=== PATIENT | female | born 1950 | race Caucasian/White ===

== ENCOUNTER → 2024-05-12 | Outpatient (CLI) | payer MEDICARE ==
[2024-05-12 15:24] LABS: ALT 17 U/L (8-44); AST 15 U/L (13-35); Chol/HDL Ratio 6.36 Ratio; LDL Cholesterol,Calculated 223.4 mg/dL (0.0-131.0)
== END | disposition home or self-care (01) ==
LOC: LABWHC1 12:16
PROVIDERS: ATTEND Internal Medicine Cardiovascular Disease
DX: E78.2 Mixed hyperlipidemia (principal)
CPT/HCPCS: 36415; 80061; 84450; 84460

== ENCOUNTER → 2024-05-31 | Outpatient (CLI) | payer MEDICARE ==
[2024-05-31 13:49] LABS: African American GFR (CKD) 6 (>60 ml/min/1.73 sqM); Blood Urea Nitrogen 39 mg/dL (7-17); Non-African American GFR(CKD) 5 (>60 ml/min/1.73 sqM)
--- NOTE | 2024-05-31 13:53 | CT ---
EXAMINATION TYPE: CT angio head CT DLP: 1504 mGycm, Automated exposure control for dose reduction was used. DATE OF EXAM: 05/31/2024 1:45 PM COMPARISON: None. 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 Axial images are supplemented with 3D reconstructions wh ich were post-processed at an independent workstation. NASCET criteria used. FINDINGS: No evidence of acute intracranial hemorrhage, mass effect, or midline shift. The ventricles, sulci, a nd cisterns are unremarkable. The visualized portions of the internal carotid arteries, middle cerebral arteries, anterior cerebral arteries, and posterior cerebral arteries are patent. 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 No visualized calcifie d plaque identified. The basilar and vertebral arteries are patent. Right vertebral artery is dominant. Diminutive left ve rtebral artery. No visualized calcified plaque identified. Bilateral aphakia. Left scleral calcifications. IMPRESSION: 1. No evidence of high-grade stenosis or intracranial aneurysm. 2. Patent vertebral arteries with diminutive left vertebral artery and dominant right vertebral lionel ry. [facility], , 05/31/2024 1:51 PM
== END | disposition home or self-care (01) ==
LOC: RADCTMAIN 13:01
PROVIDERS: ATTEND Psychiatry & Neurology Neurology
DX: I65.09 Occlusion and stenosis of unspecified vertebral artery
CPT/HCPCS: 36415; 70496; 82565; 84520

== ENCOUNTER → 2024-07-07 | Outpatient (CLI) | payer MEDICARE ==
[2024-07-08 02:10] LABS: HCT 33.5 % (37.2-46.3); HGB 10.3 g/dL (12.0-15.0); MCH 32.2 pg (27.0-32.0); MCHC 30.7 g/dL (32.0-37.0); MCV 104.7 FL (80.0-97.0); Mean Platelet Volume 9.2 FL (9.5-12.2); NRBC Per 100 WBC 0 X 10*3/uL (0.00-0.01); Platelet Count 431 X 10*3/uL (140-440); RDW 13.3 % (11.5-14.5); WBC 6.75 X 10*3/uL (4.50-10.00)
[2024-07-08 02:56] LABS: Blood Urea Nitrogen 38.2 mg/dL (9.0-27.0); Carbon Dioxide 27.1 mmol/L (21.6-31.8); Chloride 96 mmol/L (96-109); Potassium 5.3 mmol/L (3.5-5.5); Sodium 136 mmol/L (135-145)
== END | disposition home or self-care (01) ==
LOC: LABPAT 16:23
PROVIDERS: ATTEND Internal Medicine Cardiovascular Disease
DX: Z01.812 Encounter for preprocedural laboratory examination (principal); R07.2 Precordial pain
CPT/HCPCS: 80051; 82565; 84520; 85027

== ENCOUNTER 2024-07-09 06:25 | Day surgery (SDC) | payer MEDICARE ==
[2024-07-07 16:05] VITALS: BMI 33.2
[2024-07-09] MEDS ORDERED: NITROGLYCERIN SL TABS 0.4 MG TAB SUBLINGUAL PRN (06:46)
[2024-07-09] MEDS ORDERED: ALPRAZolam 0.25 MG TAB PO PRN (06:46)
[2024-07-09] MEDS ORDERED: ALPRAZolam 0.5 MG TAB PO PRN (06:46)
[2024-07-09] MEDS ORDERED: ATORVASTATIN 80 MG TAB PO STA (06:46)
[2024-07-09] MEDS ORDERED: ASPIRIN 325 MG TAB PO STA (06:46)
[2024-07-09] MEDS: IV FLUID CONTINUATION 1,000 ML IV ONE (06:50)
[2024-07-09] MEDS ORDERED: HEPARIN SODIUM,PORCINE (1 ML) 2,500 UNIT in SODIUM CHLORIDE 0.9% 250 ML IRRIGATION PRN (07:00)
[2024-07-09] MEDS ORDERED: HEPARIN SODIUM,PORCINE 10,000 UNIT in SODIUM CHLORIDE 0.9% 1,000 ML IRRIGATION PRN (07:00)
[2024-07-09 07:02] VITALS: TEMP 98
[2024-07-09] MEDS: SODIUM CHLORIDE 0.9% 1,000 ML in EMPTY BAG 1 BAG IV SCH (07:02)
[2024-07-09 07:07] LABS: Glucose,Whole Blood 81 mg/dL (70-110)
[2024-07-09] MEDS: fentaNYL (PF) 50 MCG/ML 2 ML AMP IVP ONE (07:38)
[2024-07-09] MEDS: MIDAZOLAM 2 MG/2 ML VIAL IVP ONE (07:38)
[2024-07-09] MEDS: VERAPAMIL SYRINGE (5 MG/10 ML) INTRAARTER ONE (07:42)
[2024-07-09] MEDS: LIDOCAINE 1% INJ 10MG/ML (20 ML MDV) SQ ONE (07:42)
[2024-07-09] MEDS: HEPARIN SODIUM 1,000 UN/ML (10ML VL) IVP ONE (07:43)
[2024-07-09] MEDS: IOPAMIDOL-370 100ML BTL INJ ONE (07:50)
--- NOTE | 2024-07-09 08:17 | CC ---
CARDIAC CATHETERIZATION REPORT INDICATION: Unstable angina. PROCEDURE NOTE: After obtaining informed consent, left heart catheterization and coronary angiogram were performed via the right radial artery using standard Shante catheters. The patient tolerated the procedure well without any obvious immediate complications, received moderate conscious sedation. Total sedation time was 11 minutes. Right radial artery access was obtained using Seldinger technique, 6-Hebrew sheath was placed. Catheters and wires were floated in the ascending aorta under fluoroscopic guidance. Verapamil and heparin were given per protocol. A TR band was used for hemostasis. FINDINGS: 1. HEMODYNAMICS: Left ventricular end-diastolic pressure is 18 mm. There is no significant gradient across the aortic valve. 2. LEFT VENTRICULOGRAM: Left ventriculogram is not performed. 3. ANGIOGRAPHIC DATA: a.Right coronary artery: Right coronary artery is a large codominant vessel that did not reveal significant focal obstructive disease. b.Left main coronary artery is a normal-sized vessel and is free of stenosis. Divides into left anterior descending coronary artery and circumflex coronary artery. c.LAD gives off large caliber diagonal branches. The second diagonal branch has a 40% stenosis. The rest of the LAD and the circ are free of significant disease. CONCLUSIONS: A 30% to 40% stenosis involving second diagonal branch. PLAN: I explained angiographic data with the patient and told her that her chest discomfort is probably noncardiac in origin and the stenosis noted in the diag does not explain her chest pain. She could have small vessel disease, hence we will continue to work on risk factor modification, treat her with aspirin, nitrates, and optimal control of her risk factors. MMODL / IJN: [id number] /
[2024-07-09 08:38] VITALS: RESP 16
[2024-07-09] MEDS ORDERED: RX INFO: IV CONTRAST WAS GIVEN 1 EACH MISC MISCELLANE PRN (08:45)
[2024-07-09] MEDS ORDERED: SODIUM CHLORIDE 0.9% 1,000 ML IV SCH (08:45)
[2024-07-09 12:01] VITALS: BP 141/72; PULSE 82
== END 2024-07-09 12:04 | disposition home or self-care (01) ==
LOC: CATHCVL 06:25
PROVIDERS: ATTEND Internal Medicine Cardiovascular Disease
DX: I20.0 Unstable angina (principal)
CPT/HCPCS: 93458; J2250; J2003; J3010; J1644; Q9967

== ENCOUNTER 2024-11-03 12:12 | Inpatient (IN) | payer MEDICARE ==
--- NOTE | 2024-11-03 13:00 | ED ---
General Adult HPI - General Chief complaint: Recheck/Abnormal Lab/Rx Stated complaint: SOB Time Seen by Provider: 11/03/24 12:15 Source: patient Mode of arrival: ambulatory Limitations: no limitations - History of Present Illness Initial comments: Dictation was produced using [employer] dictation software. please excuse any grammatical, word or spelling errors. Chief Complaint: 74-year-old female presents to the emerged department for malfunctioning dialysis access History of Present Illness: Patient is 74-year-old female she has history of ESRD. Patient has dialysis access to the left forearm. Patient went to dialysis yesterday and was not working. She was told to go home. States that she called vascular surgery's office who then told her they are unable to help her at this time. She then came to the emergency department. Patient has no o ther complaints. States that she received a minimal dialysis on Friday. Patient denies any chest pain to me. The ROS documented in this emergency department record has been reviewed and confirmed by me. Those systems with pertinent positive or negative responses have been documented in the HPI. All other systems are other negative and/or noncontributory. - Related Data Home Medications Medication Instructions Recorded Confirmed Atorvastatin [Lipitor] 40 mg PO HS 07/07/24 07/09/24 Folic Acid/Vit B Complex and C 1 tab PO HS 07/07/24 07/09/24 [Tea-Jn Tablet] amLODIPine BESYLATE 10 mg PO HS 07/07/24 07/09/24 hydroCHLOROthiazide [Hydrodiuril] 50 mg PO HS 07/07/24 07/09/24 Aspirin 81 mg PO DAILY 07/09/24 07/09/24 Nitroglycerin 0.4 mg SL DIRECTED 07/09/24 07/09/24 Allergies Allergy/AdvReac Type Severity Reaction Status Date / Time adhesive tape Allergy Rash/Hives Verified 11/03/24 12:19 Review of Systems ROS Statement: Those systems with pertinent positive or pertinent negative responses have been documented in the HPI. ROS Other: All systems not noted in ROS Statement are negative. Past Medical History Past Medical History: Chest Pain / Angina, Diabetes Mellitus, Hyperlipidemia, Hypertension, Osteoarthritis (OA), Renal Disease Additional Past Medical History / Comment(s): Diet Controlled Diabetes. Dialysis TUTHSA. Hx kidney stones. History of Any Multi-Drug Resistant Organisms: None Reported Past Surgical History: Joint Replacement Additional Past Surgical History / Comment(s): Procedure for kidney stone X2, bilateral knee replacement. Past Anesthesia/Blood Transfusion Reactions: No Reported Reaction, Motion Sickness Past Psychological History: No Psychological Hx Reported Smoking Status: Never smoker Past Alcohol Use History: None Reported Past Drug Use History: None Reported - Past Family History Brother(s) Family Medical History: Cancer General Exam - General Exam Comments Initial Comments: PHYSICAL EXAM: General Impression: Alert and oriented x3, not in acute distress HEENT: Normocephalic atraumatic, extra-ocular movements intact, pupils equal and reactive to light bilaterally, mucous membranes moist. Cardiovascular: Heart regular rate and rhythm Chest: Able to complete full sentences, no retractions, no tachypnea Abdomen: abdomen soft, non-tender, non-distended, no organomegaly Musculoskeletal: Pulses present and equal in all extremities, no peripheral edema Forearm breath with no palpable thrill or audible bruit Motor: no focal deficits noted Neurological: CN II-XII grossly intact, no focal motor or sensory deficits noted Skin: Intact with no visualized rashes Psych: Normal affect and mood Limitations: no limitations Course Vital Signs 11/03/24 11/03/24 12:15 12:46 Temperature 97.3 F L Pulse Rate 72 Respiratory 18 18 Rate Blood Pressure 147/72 O2 Sat by Pulse 98 Oximetry EKG Findings - EKG Comments: EKG Findings:: My EKG interpretation: Ventricular rate 66, sinus rhythm,. Well 221, QRS 84, QTc 3 5. No signs of hyperkalemia. No VA prolongation, no QTC prolongation, no ST or T-wave changes noted. compared to [default value] showing no changes. Overall, this EKG is unremarkable Medical Decision Making - Medical Decision Making Was pt. sent in by a medical professional or institution (, PA, ADVERTISING REPRESENTATIVE, urgent care, hospital, or fdc...) When possible be specific @ -No Did you speak to anyone other than the patient for history (EMS, parent, family, police, friend...)? What history was obtained from this source @ -No Did you review nursing and triage notes (agree or disagree)? Why? @ -I reviewed and agree with nursing and triage notes Were old charts reviewed (outside hosp., previous admission, EMS record, old EKG, old radiological studies, urgent care reports/EKG's, fdc records)? Report findings @ -No old charts were reviewed Differential Diagnosis (chest pain, altered mental status, abdominal pain women, abdominal pain men, vaginal bleeding, musculoskeletal, weakness, fever, dyspnea, syncope, headache, dizziness, GI bleed, back pain, seizure, CVA, palpatations, mental health)? @ -Not applicable EKG interpreted by me (3pts min.). @ -None done X-rays interpreted by me (1pt min.). @ -Chest x-ray shows mild pulmonary edema CT interpreted by me (1pt min.). @ -None done U/S interpreted by me (1pt. min.). @ -None done What testing was considered but not performed or refused? (CT, X-rays, U/S, labs)? Why? @ -None What meds were considered but not given or refused? Why? @ -None Was smoking cessation discussed for >3mins.? @ -No Were there social determinants of health that impacted care today? How? (H omelessness, low income, unemployed, alcoholism, drug addiction, transportation, low edu. Level, literacy, decrease access to med. care, custodial, rehab)? @ -No Was there de-escalation of care discussed even if they declined (Discuss DNR or withdrawal of care, Hospice)? DNR status @ -No What co-morbidities impacted this encounter? (DM, HTN, Smoking, COPD, CAD, Cancer, CVA, ARF, Chemo, Hep., AIDS, mental health diagnosis, sleep apnea, morbid obesity)? @ -ESRD Was patient admitted / discharged? Hospital course, mention meds given and route, prescriptions, significant lab abnormalities, going to OR and other pertinent info. @ -74-year-old female with malfunctioning hemodialysis access site. She received some dialysis Friday most recently. Patient denies any symptoms of missed HD. Vital signs stable. Potassium is within acceptable limits. Patient be admitted with consultation to vascular surgery. Case discussed with hospitalist for admission. Nephrology also consulted. Did you discuss the management of the patient with other professionals (professionals i.e. , PA, ADVERTISING REPRESENTATIVE, lab, RT, psych nurse, social media intern, carrot tier, teacher, civil preparedness officer, caser up)? Give summary @ -No Was critical care preformed (if so, how long)? @ -No Undiagnosed new problem with uncertain prognosis? @ -No Drug Therapy requiring intensive monitoring for toxicity (Heparin, Nitro, Insulin, Cardizem)? @ -No Were any procedures done? @ -No Diagnosis/symptom? Acute, or Chronic, or Acute on Chronic? Uncomplicated (without systemic symptoms) or Complicated (systemic symptoms)? @ -Malfunctioning HD access Side effects of treatment? @ -No Exacerbation, Progression, or Severe Exacerbation? @ -No Poses a threat to life or bodily function? How? (Chest pain, USA, IA, pneumonia, PE, COPD, DKA, ARF, appy, cholecystitis, CVA, Diverticulitis, Homicidal, Suicidal, threat to staff... and all critical care pts) @ -yes - Lab Data Result diagrams: 11/03/24 13:04 11/03/24 13:04 Lab Results 11/03/24 11/03/24 11/03/24 Range/Units 13:04 13:04 13:04 WBC 8.1 (3.8-10.6) k/uL RBC 3.70 L (3.80-5.40) m/uL Hgb 11.4 (11.4-16.0) gm/dL Hct 36.8 (34.0-46.0) % MCV 99.5 (80.0-100.0) fL MCH 30.9 (25.0-35.0) pg MCHC 31.0 (31.0-37.0) g/dL RDW 13.4 (11.5-15.5) % Plt Count 368 (150-450) k/uL MPV 6.9 Neutrophils % 73 % Lymphocytes % 15 % Monocytes % 5 % Eosinophils % 4 % Basophils % 0 % Neutrophils # 5.9 (1.3-7.7) k/uL Lymphocytes # 1.2 (1.0-4.8) k/uL Monocytes # 0.4 (0-1.0) k/uL Eosinophils # 0.3 (0-0.7) k/uL Basophils # 0.0 (0-0.2) k/uL Hypochromasia Slight PT 9.9 L (10.0-12.5) sec INR 0.9 (<1.2) APTT 22.4 (22.0-30.0) sec Sodium 138 (137-145) mmol/L Potassium 4.7 (3.5-5.1) mmol/L Chloride 97 L (98-107) mmol/L Carbon Dioxide 31 H (22-30) mmol/L Anion Gap 10 mmol/L BUN 50 H (7-17) mg/dL Creatinine 7.96 H* (0.52-1.04) mg/dL Est GFR (CKD-EPI)AfAm 5 (>60 ml/min/1.73 sqM) Est GFR (CKD-EPI)NonAf 5 (>60 ml/min/1.73 sqM) Glucose 138 H (74-99) mg/dL Calcium 12.4 H (8.4-10.2) mg/dL Magnesium 4.2 H (1.6-2.3) mg/dL Total Bilirubin 0.6 (0.2-1.3) mg/dL AST 20 (14-36) U/L ALT 18 (4-34) U/L Alkaline Phosphatase 98 (38-126) U/L Troponin I (0.000-0.034) ng/mL Total Protein 7.0 (6.3-8.2) g/dL Albumin 4.3 (3.5-5.0) g/dL 11/03/24 Range/Units 13:04 WBC (3.8-10.6) k/uL RBC (3.80-5.40) m/uL Hgb (11.4-16.0) gm/dL Hct (34.0-46.0) % MCV (80.0-100.0) fL MCH (25.0-35.0) pg MCHC (31.0-37.0) g/dL RDW (11.5-15.5) % Plt Count (150-450) k/uL MPV Neutrophils % % Lymphocytes % % Monocytes % % Eosinophils % % Basophils % % Neutrophils # (1.3-7.7) k/uL Lymphocytes # (1.0-4.8) k/uL Monocytes # (0-1.0) k/uL Eosinophils # (0-0.7) k/uL Basophils # (0-0.2) k/uL Hypochromasia PT (10.0-12.5) sec INR (<1.2) APTT (22.0-30.0) sec Sodium (137-145) mmol/L Potassium (3.5-5.1) mmol/L Chloride (98-107) mmol/L Carbon Dioxide (22-30) mmol/L Anion Gap mmol/L BUN (7-17) mg/dL Creatinine (0.52-1.04) mg/dL Est GFR (CKD-EPI)AfAm (>60 ml/min/1.73 sqM) Est GFR (CKD-EPI)NonAf (>60 ml/min/1.73 sqM) Glucose (74-99) mg/dL Calcium (8.4-10.2) mg/dL Magnesium (1.6-2.3) mg/dL Total Bilirubin (0.2-1.3) mg/dL AST (14-36) U/L ALT (4-34) U/L Alkaline Phosphatase (38-126) U/L Troponin I <0.012 (0.000-0.034) ng/mL Total Protein (6.3-8.2) g/dL Albumin (3.5-5.0) g/dL Disposition Clinical Impression: Hemodialysis graft malfunction Disposition: ADMITTED IP TO THIS HOSP Condition: Fair Referrals: Stephanie Gay MD [Primary Care Provider] - 1-2 days Decision Time: 14:31
[2024-11-03 13:17] LABS: Basophils % (A) 0 %; Eosinophils # (A) 0.3 k/uL (0-0.7); Eosinophils % (A) 4 %; HCT 36.8 % (34.0-46.0); HGB 11.4 gm/dL (11.4-16.0); Hypochromasia Slight; Lymphocytes # (A) 1.2 k/uL (1.0-4.8); Lymphocytes % (A) 15 %; MCH 30.9 pg (25.0-35.0); MCV 99.5 fL (80.0-100.0); Mean Platelet Volume 6.9; Monocytes # (A) 0.4 k/uL (0-1.0); Monocytes % (A) 5 %; Neutrophils # (A) 5.9 k/uL (1.3-7.7); Neutrophils % (A) 73 %; Platelet Count 368 k/uL (150-450); RDW 13.4 % (11.5-15.5); WBC 8.1 k/uL (3.8-10.6)
[2024-11-03 13:27] LABS: ALT 18 U/L (4-34); AST 20 U/L (14-36); African American GFR (CKD) 5 (>60 ml/min/1.73 sqM); Albumin 4.3 g/dL (3.5-5.0); Alkaline Phosphatase 98 U/L (38-126); Anion Gap 10 mmol/L; Blood Urea Nitrogen 50 mg/dL (7-17); Calcium 12.4 mg/dL (8.4-10.2); Carbon Dioxide 31 mmol/L (22-30); Chloride 97 mmol/L (98-107); Glucose 138 mg/dL (74-99); Magnesium 4.2 mg/dL (1.6-2.3); Non-African American GFR(CKD) 5 (>60 ml/min/1.73 sqM); Potassium 4.7 mmol/L (3.5-5.1); Sodium 138 mmol/L (137-145); Total Bilirubin 0.6 mg/dL (0.2-1.3)
--- NOTE | 2024-11-03 13:30 | XR ---
EXAMINATION TYPE: XR chest 2V DATE OF EXAM: 11/03/2024 1:13 PM COMPARISON: None CLINICAL INDICATION: Female, 74 years old with history of missed HD, chest pain?; [facility] TECHNIQUE: XR chest 2V Frontal and lateral views of the chest. FINDINGS: Lungs/Pleura: There is no evidence of pleural effusion, focal consolidation, or pneumothorax. Pulmonary vascularity: Pulmonary vascular congestion. Heart/mediastinum: Cardiomediastinal silhouette is unremarkable. Musculoskeletal: No acute osseous pathology. IMPRESSION: Mild pulmonary edema [facility], , 11/03/2024 1:28 PM
[2024-11-03 13:35] LABS: INR 0.9 (<1.2); Partial Thromboplastin Time 22.4 sec (22.0-30.0); Prothrombin Time 9.9 sec (10.0-12.5)
[2024-11-03] MEDS ORDERED: NALOXONE 0.4 MG/ML 1 ML VIAL IV PRN (14:23)
--- NOTE | 2024-11-03 15:24 | P.GSCN ---
History of Present Illness Consult date: 11/03/24 Reason for Consult: Malfunctioning dialysis graft Requesting physician: Desean Orta History of present illness: This a pleasant 74-year-old female who came into the emergency department for concerns of malfunctioning left upper extremity AV graft. Patient has a history of end-stage renal disease started dialysis about a year and a half ago. She has a left upper extremity loop graft placed by Dr. Lockwood at [facility] about a year ago. Patient states she gets dialysis Friday and Saturdays. Friday she went to dialysis and during her treatment she started having chest pain and they called EMS. She reports they did not remove the needles from her arm and she was taken to [facility]. She does not recall how long the needles were left in her arm. She states she had about an hour and a half of dialysis treatment. She was seen by cardiology and had been cleared by cardiology for discharge and patient states that they could not find a reason for her chest pain. Yesterday she went for dialysis however they were unable to access her graft, she was told to by vascular surgery office to go to [facility] however patient came here today. She denies any pain in forearm. She currently denies any shortness of breath, chest pain, abdominal pain nausea or vomiting. No fevers or chills. Review of Systems A 14 point review systems was completed all pertinent positives and negatives as stated in the HPI. Past Medical History Past Medical History: Chest Pain / Angina, Diabetes Mellitus, Hyperlipidemia, Hypertension, Osteoarthritis (OA), Renal Disease Additional Past Medical History / Comment(s): Diet Controlled Diabetes. Dialysis TUTHSA. Hx kidney stones. History of Any Multi-Drug Resistant Organisms: None Reported Past Surgical History: Joint Replacement Additional Past Surgical History / Comment(s): Procedure for kidney stone X2, bilateral knee replacement. Past Anesthesia/Blood Transfusion Reactions: No Reported Reaction, Motion Sickness Past Psychological History: No Psychological Hx Reported Smoking Status: Never smoker Past Alcohol Use History: None Reported Past Drug Use History: None Reported - Past Family History Brother(s) Family Medical History: Cancer Medications and Allergies Home Medications Medication Instructions Recorded Confirmed Type Atorvastatin [Lipitor] 40 mg PO HS 07/07/24 11/03/24 History Folic Acid/Vit B Complex and C 0.8 mg PO HS 07/07/24 11/03/24 History [Tea-Jn Tablet] Nitroglycerin 0.4 mg SL Q5M PRN 07/09/24 11/03/24 History Isosorbide Mononitrate ER [Imdur] 30 mg PO DAILY 11/03/24 11/03/24 History Metoprolol Succinate (ER) [Toprol 25 mg PO DAILY 11/03/24 11/03/24 History Xl] carvediloL [Coreg] 6.25 mg PO BID 11/03/24 11/03/24 History Allergies Allergy/AdvReac Type Severity Reaction Status Date / Time adhesive tape Allergy Rash/Hives Verified 11/03/24 14:52 Surgical - Exam Vital Signs Temp Pulse Resp BP Pulse Ox 97.3 F L 72 18 147/72 98 11/03/24 12:15 11/03/24 12:15 11/03/24 12:15 11/03/24 12:15 11/03/24 12:15 General appearance: The patient is alert, oriented, appears in no acute distress. HET: Head is normocephalic and atraumatic. Pupils are equal and reactive. Neck: Supple. Heart: Regular. Lungs: Equal expansion, normal respiratory effort. Abdomen: Soft, nontender, nondistended. Extremities: Normal skin color and turgor. Left forearm loop AV graft without palpable thrill or audible bruit. Neurological: No focal deficits. Alert and oriented. Results - Labs 11/03/24 13:04 11/03/24 13:04 Abnormal Lab Results - Last 24 Hours (Table) 11/03/24 11/03/24 11/03/24 Range/Units 13:04 13:04 13:04 RBC 3.70 L (3.80-5.40) m/uL PT 9.9 L (10.0-12.5) sec Chloride 97 L (98-107) mmol/L Carbon Dioxide 31 H (22-30) mmol/L BUN 50 H (7-17) mg/dL Creatinine 7.96 H* (0.52-1.04) mg/dL Glucose 138 H (74-99) mg/dL Calcium 12.4 H (8.4-10.2) mg/dL Magnesium 4.2 H (1.6-2.3) mg/dL Diabetes panel 11/03/24 Range/Units 13:04 Sodium 138 (137-145) mmol/L Potassium 4.7 (3.5-5.1) mmol/L Chloride 97 L (98-107) mmol/L Carbon Dioxide 31 H (22-30) mmol/L BUN 50 H (7-17) mg/dL Creatinine 7.96 H* (0.52-1.04) mg/dL Glucose 138 H (74-99) mg/dL Calcium 12.4 H (8.4-10.2) mg/dL AST 20 (14-36) U/L ALT 18 (4-34) U/L Alkaline Phosphatase 98 (38-126) U/L Total Protein 7.0 (6.3-8.2) g/dL Albumin 4.3 (3.5-5.0) g/dL Calcium panel 11/03/24 Range/Units 13:04 Calcium 12.4 H (8.4-10.2) mg/dL Albumin 4.3 (3.5-5.0) g/dL Pituitary panel 11/03/24 Range/Units 13:04 Sodium 138 (137-145) mmol/L Potassium 4.7 (3.5-5.1) mmol/L Chloride 97 L (98-107) mmol/L Carbon Dioxide 31 H (22-30) mmol/L BUN 50 H (7-17) mg/dL Creatinine 7.96 H* (0.52-1.04) mg/dL Glucose 138 H (74-99) mg/dL Calcium 12.4 H (8.4-10.2) mg/dL Adrenal panel 11/03/24 Range/Units 13:04 Sodium 138 (137-145) mmol/L Potassium 4.7 (3.5-5.1) mmol/L Chloride 97 L (98-107) mmol/L Carbon Dioxide 31 H (22-30) mmol/L BUN 50 H (7-17) mg/dL Creatinine 7.96 H* (0.52-1.04) mg/dL Glucose 138 H (74-99) mg/dL Calcium 12.4 H (8.4-10.2) mg/dL Total Bilirubin 0.6 (0.2-1.3) mg/dL AST 20 (14-36) U/L ALT 18 (4-34) U/L Alkaline Phosphatase 98 (38-126) U/L Total Protein 7.0 (6.3-8.2) g/dL Albumin 4.3 (3.5-5.0) g/dL Assessment and Plan Assessment: 1. Thrombosed left upper extremity forearm loop AV graft 2. End-stage renal disease on hemodialysis Plan: 1. N.p.o. after midnight 2. Will plan for fistulogram tomorrow with possible intervention versus possible tunnel catheter placement 3. Hemodialysis per recommendations from nephrology 4. Rest of medical management per primary medical team Thank you for this consultation, we will continue to follow. The impression and plan of care has been dictated as directed. Dr. Nieves Gautam performed a history and examination of this patient, discussed the same with the dictator. I agree with the dictator's note ,documented as a scribe. Any additional findings or plans will be noted.
[2024-11-03] MEDS ORDERED: DEXTROSE 50% SYRINGE 50 ML IVP PRN ×2 (16:17)
[2024-11-03 17:17] LABS: Glucose,Whole Blood 101 mg/dL (70-110)
--- NOTE | 2024-11-03 17:47 | P.HPIM ---
History of Present Illness H&P Date: 11/03/24 Patient is a 74-year-old female with CAD, ESRD (dialysis Friday), hyperlipidemia, hypertension, osteoarthritis, diabetes (diet- controlled) is here for the evaluation of malfunctioning dialysis port of the left arm. Patient also reported that she had chest pain during her dialysis session on Friday and staff called EMS. She was taken to [facility] and they placed needles on her arm that were not removed. She was evaluated by cardiology and was cleared for discharge as they could not find a reason for her chest pain. Patient reported that she went for dialysis yesterday on 11/02 however her dialysis port did not work. She has no symptoms or complaints on the affected extremity. She was advised by the vascular surgery office to return to [facility] where her graft was done however patient came to our facility today. She denied pain, swelling, focal weakness, changes in sensation, bleeding of the affected extremity. She denied shortness of breath, chest pain, palpitations, changes in vision, facial asymmetry, lightheadedness, dizziness, balance changes, recent illness. On admission: Vitals: 9.73 Fahrenheit, pulse rate 72, respiratory rate 18, blood pressure 147/72, oxygen saturation 98 % on room air Labs: WBC 8.1, hemoglobin 11.4, platelet count 360,000, PTT 9.9, INR 0.9, PTT 22.4. Chloride 97, bicarb 31, BUN 50, creatinine 7.96, glucose 138, calcium 12.4, magnesium 4.2, AST 20, ALT 18. Troponins negative. Imaging: EKG independently interpreted show sinus rhythm with a rate of 66, first-degree AV block with MI interval 221 MS, normal axis, no ST-T changes, good R wave progression, QTc 385 MS. Chest x-ray showed. ED documentation reviewed. Consulted vascular surgery and nephrology. Review of systems: Pertinent positives and negatives as discussed in HPI, a complete review of systems was performed and all other systems are negative. Social history: Tobacco: Denies tobacco use Alcohol: Denies alcohol use Recreational drugs: No history with illicit or recreational drugs Travel: No recent travel Physical examination: Vital signs reviewed General: non toxic, no distress, appears at stated age, Derm: no unusual rashes/lesions, warm Head: atraumatic, normocephalic, symmetric Eyes: EOMI, anicteric sclera, pupils equal round reactive to light ENT: Nose and ears atraumatic Neck: No cervical lymphadenopathy, trachea midline, supple Mouth: no lip lesion, mucus membranes moist Cardiovascular: S1S2 reg, no murmur Lungs: CTA bilateral, no rhonchi, no rales, no accessory muscle use Abdominal: soft, nondistended, nontender to palpation, no guarding Ext: muscle strength 5 out of 5 in all 4 extremities grossly, no gross muscle atrophy, no contractures, positive dorsalis pedis pulse bilateral, no edema, AV fistula noted on left forearm with 1 vessel firm but mobile without any bleeding, bruits, bruising or swelling noted Neuro: CN II-XI grossly intact, no gross focal neuro deficits Psych: Alert and oriented x 3, appropriate affect and mood Assessment/Plan: 74-year-old female has a history of ESRD here for thrombosed left upper extremity forearm looped AV graft #. ESRD with thrombosed AV graft -Nephrology consulted for dialysis -Vascular surgery consulted -N.p.o. at midnight #. Hypercalcemia, likely due to above #. Hypermagnesemia likely due to above -Ordered VitD, PTH and phosphorus -Monitor Ca and Mag #. First-degree AV block -Seen on EKG -Patient stable and asymptomatic -Monitor for now #. Type II diabetes with hyperglycemia -Glucose 138 -Check A1c -Insulin sliding scale ACHS -Glucose Accu-Cheks ACHS. Monitor for hypoglycemia Chronic Conditions: #. CAD #. Hyperlipidemia #. Hypertension #. Osteoarthritis #. Diabetes -Resumed home atorvastatin, carvedilol and isosorbide mononitrate F: Oral intake E: Monitor electrolytes particularly calcium and magnesium N: Renal diet. N.p.o. at midnight A: Can self ambulate DVT ppx: Heparin subcu Dispo: The patient is admitted as observation with an anticipated less than 2 midnight stay for evaluation of ESRD graft thrombosis CODE STATUS: Full Discussed with: Patient Anticipated discharge place: Home Brandi Blanchard MD PGY-1 IM Dictation was produced using [employer] dictation software. please excuse any grammatical, word or spelling errors. I have seen and evaluated the patient today. Discussed with the resident and agree with the residents finding and plan as documented in the resident's note. Changes highlighted in blue font. Past Medical History Past Medical History: Chest Pain / Angina, Diabetes Mellitus, Hyperlipidemia, Hypertension, Osteoarthritis (OA), Renal Disease Additional Past Medical History / Comment(s): Diet Controlled Diabetes. Dialysis TUTHSA. Hx kidney stones. History of Any Multi-Drug Resistant Organisms: None Reported Past Surgical History: Joint Replacement Additional Past Surgical History / Comment(s): Procedure for kidney stone X2, bilateral knee replacement. Past Anesthesia/Blood Transfusion Reactions: No Reported Reaction, Motion Sickness Past Psychological History: No Psychological Hx Reported Smoking Status: Never smoker Past Alcohol Use History: None Reported Past Drug Use History: None Reported - Past Family History Brother(s) Family Medical History: Cancer Medications and Allergies Home Medications Medication Instructions Recorded Confirmed Type Atorvastatin [Lipitor] 40 mg PO HS 07/07/24 11/03/24 History Folic Acid/Vit B Complex and C 0.8 mg PO HS 07/07/24 11/03/24 History [Tea-Jn Tablet] Nitroglycerin 0.4 mg SL Q5M PRN 07/09/24 11/03/24 History Isosorbide Mononitrate ER [Imdur] 30 mg PO DAILY 11/03/24 11/03/24 History Metoprolol Succinate (ER) [Toprol 25 mg PO DAILY 11/03/24 11/03/24 History Xl] carvediloL [Coreg] 6.25 mg PO BID 11/03/24 11/03/24 History Allergies Allergy/AdvReac Type Severity Reaction Status Date / Time adhesive tape Allergy Rash/Hives Verified 11/03/24 14:52 Physical Exam Vitals: Vital Signs Temp Pulse Resp BP Pulse Ox 11/03/24 12:46 18 11/03/24 12:15 97.3 F L 72 18 147/72 98 Intake and Output 11/03/24 11/03/24 11/03/24 06:59 14:59 22:59 Other: Weight 79.832 kg Results CBC & Chem 7: 11/03/24 13:04 11/03/24 13:04 Labs: Abnormal Lab Results - Last 24 Hours (Table) 11/03/24 11/03/24 11/03/24 Range/Units 13:04 13:04 13:04 RBC 3.70 L (3.80-5.40) m/uL PT 9.9 L (10.0-12.5) sec Chloride 97 L (98-107) mmol/L Carbon Dioxide 31 H (22-30) mmol/L BUN 50 H (7-17) mg/dL Creatinine 7.96 H* (0.52-1.04) mg/dL Glucose 138 H (74-99) mg/dL Calcium 12.4 H (8.4-10.2) mg/dL Magnesium 4.2 H (1.6-2.3) mg/dL
[2024-11-03] MEDS: INSULIN LISPRO (HumaLOG) 100 UNIT/ML 10 mL VL SQ SCH (18:25)
[2024-11-03] MEDS: HEPARIN SODIUM,PORCINE 5,000 UNIT/ML 1 ML VIAL SQ SCH (18:28)
[2024-11-03] MEDS: carvediloL 6.25 MG TAB PO SCH (18:28)
[2024-11-03 20:40] LABS: Glucose,Whole Blood 181 mg/dL (70-110)
[2024-11-03] MEDS: ATORVASTATIN 40 MG TAB PO SCH (20:41)
[2024-11-04 04:43] LABS: African American GFR (CKD) 5 (>60 ml/min/1.73 sqM); Anion Gap 8 mmol/L; Blood Urea Nitrogen 59 mg/dL (7-17); Calcium 12.3 mg/dL (8.4-10.2); Carbon Dioxide 27 mmol/L (22-30); Chloride 98 mmol/L (98-107); Glucose 93 mg/dL (74-99); Non-African American GFR(CKD) 4 (>60 ml/min/1.73 sqM); Potassium 4.5 mmol/L (3.5-5.1); Sodium 133 mmol/L (137-145)
[2024-11-04 07:13] LABS: Glucose,Whole Blood 102 mg/dL (70-110)
[2024-11-04] MEDS: ISOSORBIDE MONONITRATE ER 30 MG TAB.ER.24H PO SCH (09:08)
[2024-11-04] MEDS: ASPIRIN 81 MG PO SCH (09:09)
--- NOTE | 2024-11-04 11:02 | P.NPCON ---
History of Present Illness - Reason for Consult end stage renal disease - History of Present Illness Reason for consultation: End-stage renal disease History of present illness: Patient is a 74-year-old female seen in renal consultation for end-stage renal disease. She is maintained on hemodialysis on Friday schedule. Last dialysis was on Friday. Patient states when she went to [facility] on Friday her AV graft was not functioning and she came here for further evaluation. Patient states she also went to the hospital last Friday due to not feeling well and was subsequently discharged. Patient dialyzes at [facility] in [place] and follows with compensation coordinator in that area. She makes little urine. She does have history of diabetes. Denies history of coronary artery disease. No fever or chills. No vomiting or diarrhea. No chest pain or shortness of breath. Vital signs are stable. General: No acute distress. HEENT: Head exam is unremarkable. LUNGS: No audible rhonchi or wheezes. HEART: Rate and Rhythm are regular. ABDOMEN: Nontender. EXTREMITITES: No edema. Past Medical History Past Medical History: Chest Pain / Angina, Diabetes Mellitus, Hyperlipidemia, Hypertension, Osteoarthritis (OA), Renal Disease Additional Past Medical History / Comment(s): Diet Controlled Diabetes. Dialysis TUTHSA. Hx kidney stones. History of Any Multi-Drug Resistant Organisms: None Reported Past Surgical History: Joint Replacement Additional Past Surgical History / Comment(s): Procedure for kidney stone X2, bilateral knee replacement. Past Anesthesia/Blood Transfusion Reactions: No Reported Reaction, Motion Sickness Past Psychological History: No Psychological Hx Reported Smoking Status: Never smoker Past Alcohol Use History: None Reported Past Drug Use History: None Reported - Past Family History Brother(s) Family Medical History: Cancer Medications and Allergies Home Medications Medication Instructions Recorded Confirmed Type Atorvastatin [Lipitor] 40 mg PO HS 07/07/24 11/03/24 History Folic Acid/Vit B Complex and C 0.8 mg PO HS 07/07/24 11/03/24 History [Tea-Jn Tablet] Nitroglycerin 0.4 mg SL Q5M PRN 07/09/24 11/03/24 History Isosorbide Mononitrate ER [Imdur] 30 mg PO DAILY 11/03/24 11/03/24 History Metoprolol Succinate (ER) [Toprol 25 mg PO DAILY 11/03/24 11/03/24 History Xl] carvediloL [Coreg] 6.25 mg PO BID 11/03/24 11/03/24 History Allergies Allergy/AdvReac Type Severity Reaction Status Date / Time adhesive tape Allergy Rash/Hives Verified 11/03/24 14:52 Physical Exam Vitals: Vital Signs Temp Pulse Pulse Resp BP BP Pulse Ox 11/04/24 07:11 97.5 F L 75 18 147/81 95 11/04/24 01:10 98 F 72 17 110/67 96 11/03/24 19:45 98.0 F 71 16 145/81 94 L 11/03/24 12:46 18 11/03/24 12:15 97.3 F L 72 18 147/72 98 Intake and Output 11/03/24 11/04/24 11/04/24 22:59 06:59 14:59 Intake Total 0 Balance 0 Intake: Oral 0 Other: # Voids 1 Weight 79.832 kg Results - Lab Results Most recent lab results Calcium 12.3 mg/dL (8.4-10.2) H 11/04/24 03:48 Phosphorus 5.6 mg/dL (2.5-4.5) H 11/03/24 17:06 Magnesium 4.2 mg/dL (1.6-2.3) H 11/03/24 13:04 11/03/24 13:04 11/04/24 03:48 Assessment and Plan Plan: Assessment: 1. End-stage renal disease maintained on hemodialysis on Friday schedule. 2. Clotted AV graft. Vascular surgery consulted. 3. Chronic kidney disease mineral bone disease. Calcium 12.3. Phosphorus 5.6. Vitamin D level high at 135. PTH low at 16.6. 4. Diabetes mellitus. 5. 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 Plan: Avoid any calcium, vitamin D and magnesium supplementations. Dialysis today with low calcium bath. Check 125 D3 level and also serum electrophoresis with immunofixation. Lasix 80 mg IV once now. I discussed the case at length with patient's compensation coordinator, Dr. Chu. Patient's calcium level tends to be around 12 and this has been worked up extensively including the workup mentioned above. PTH related peptide was noted to be minimally elevated. She was referred to oncology and endocrinology. She had imaging done with CAT scans and also colonoscopy with no evidence of malignancy. Additionally patient has also been tried on Sensipar but was unable to tolerate the medication. Thank you for the consultation. I will continue to follow the patient with you during her hospital stay.
[2024-11-04] MEDS: FUROSEMIDE 10 MG/ML 10 ML VIAL IV STA (11:55)
[2024-11-04 12:02] LABS: Glucose,Whole Blood 114 mg/dL (70-110)
[2024-11-04] MEDS: IV FLUID CONTINUATION 500 ML IV ONE (12:33)
[2024-11-04] MEDS: LIDOCAINE 1% INJ 10MG/ML (20 ML MDV) SQ ONE ×2 (12:36→12:38)
[2024-11-04] MEDS: fentaNYL (PF) 50 MCG/ML 2 ML AMP IVP ONE (12:38)
[2024-11-04] MEDS: MIDAZOLAM 2 MG/2 ML VIAL IVP ONE (12:38)
[2024-11-04] MEDS: ALTEPLASE 2 MG VIAL (CATHFLO) IV ONE ×3 (12:57→13:22)
[2024-11-04] MEDS: IOPAMIDOL-370 100ML BTL INJ ONE (13:23)
--- NOTE | 2024-11-04 13:46 | P.OP ---
Date of Procedure: 11/04/24 Description of Procedure: Preoperative diagnosis: Thrombosed left forearm loop graft Postoperative diagnosis: Same Procedure: Ultrasound-guided AV graft access 2 Fistulogram Pharmacal mechanical thrombectomy with 6-Swedish AngioJet Percutaneous transluminal balloon angioplasty of the inflow 5 x 40, Percutaneous transdermal balloon angioplasty outflow 7 x 20 Moderate conscious sedation 54 minutes, personal monitoring certified RN administration with hemodynamic monitoring Surgeon: Heidy Correa D.O. EBL: Less than 10 mL IV fluids: See records Urine output: Not measured Drains: None Complications: None immediately apparent Condition: Stable to recovery Operative indication and findings: Patient is a 74-year-old female with a loop graft from left upper arm who was unable to get dialysi due to thrombosis of the graft. She states has not been any issue with the graft access. She typically has no alarming findings during dialysis itself. Due to thrombosis, we discussed plans and she presents for fistulogram and intervention She seemingly understands the plan is willing to proceed. Procedure in detail: Patient was taken to the special suite and placed in supine position. Left upper extremity is prepped and draped in usual sterile fashion. A preprocedure timeout was performed, all parties were in agreement. Using ultrasound, initially in the outflow direction, the graft was accessed. Permanent images stored. Catheters and wires were utilized passed into the outflow vein and venogram was performed showing no evidence of obvious stenosis of the venous outflow. The catheter was then drawn back until the level of the outflow anastomosis which did appear to be thrombosed. tPA was instilled via a pullback method. Dwelling time was allowed and during this time, access was obtained towards the inflow direction. Again using ultrasound the graft was cannulated and a 6-Swedish sheath was placed. Catheters and wires were placed into the brachial artery and images performed showing patent arterial vasculature That point the arterial inflow was treated with TPA instillation. While this was dwelling, the suction thrombectomy portion was performed of the outflow. Following this outflow imaging was performed. There was evidence of moderate stenosis at the anastomosis and access points in the outflow tract therefore a 7 x 20 balloon was used for angioplasty. There was improvement there was good flow through. There was significant abnormality with multiple small branch vessels. However flow washed well. Attention was then turned towards the inflow. Suction thrombectomy was performed. An angiogram via the brachial artery was performed showing continuous flow through the entirety of the graft with mild stenosis of the arterial anastomosis and areas of access. 5 x 40 balloon was utilized to angioplasty this inflow area. Repeat images performed, there was significant improvement of flow through the graft with resolution of the mild stenosis. There appeared to be adequate pulse to the graft with flow throughout. Final imaging was performed showing continued improvement of the outflow anastomosis with brisk washing of contrast. At that point catheters and wires were removed. The sheath was removed and [id number] sutures were placed at each site. Dressings were placed the patient was allowed awaken from her sedation and transferred to recovery in stable condition having tolerated her procedure well.
--- NOTE | 2024-11-04 14:17 | IR ---
EXAMINATION TYPE: IR fistula/abscess/sinus tract DATE OF EXAM: 11/04/2024 2:13 PM COMPARISON: Pre Operative Images if available both CT/MRI or plain film CLINICAL INDICATION: Female, 74 years old with history of Left Arm Thrombosed Fistula, 10.9 min FL, 3 .19 G/cm2; TECHNIQUE: IR fistula/abscess/sinus tract, multiple fluoroscopic images provided for procedure. DAP: 3.19 mGym2 Gycm2 uGym2 cGycm2 or equivalent. FINDINGS: IMPRESSION: 1. Report was generated for administrative purposes only. 2. Please see the operative/procedural note for further details. [facility], , 11/04/2024 2:15 PM
[2024-11-04] MEDS: ALTEPLASE 2 MG VIAL (CATHFLO) IV STA ×3 (14:37→14:39)
--- NOTE | 2024-11-04 17:21 | P.PN ---
Subjective Progress Note Date: 11/04/24 Patient is a 74-year-old female with CAD, ESRD (dialysis Friday), hyperlipidemia, hypertension, osteoarthritis, diabetes (diet- controlled) is here for the evaluation of malfunctioning dialysis port of the left arm. Patient also reported that she had chest pain during her dialysis session on Friday and staff called EMS. She was taken to [facility] and they placed needles on her arm that were not removed. She was evaluated by cardiology and was cleared for discharge as they could not find a reason for her chest pain. Patient reported that she went for dialysis yesterday on 11/02 however her dialysis port did not work. She has no symptoms or complaints on the affected extremity. She was advised by the vascular surgery office to return to [facility] where her graft was done however patient came to our facility today. She denied pain, swelling, focal weakness, changes in sensation, bleeding of the affected extremity. She denied shortness of breath, chest pain, palpitations, changes in vision, facial asymmetry, lightheadedness, dizziness, balance changes, recent illness. On admission: Vitals: 9.73 Fahrenheit, pulse rate 72, respiratory rate 18, blood pressure 147/72, oxygen saturation 98 % on room air Labs: WBC 8.1, hemoglobin 11.4, platelet count 360,000, PTT 9.9, INR 0.9, PTT 22.4. Chloride 97, bicarb 31, BUN 50, creatinine 7.96, glucose 138, calcium 12.4, magnesium 4.2, AST 20, ALT 18. Troponins negative. Imaging: EKG independently interpreted show sinus rhythm with a rate of 66, first-degree AV block with W[place] interval 221 MS, normal axis, no ST-T changes, good R wave progression, QTc 385 MS. Chest x-ray showed. 11/04/2024 patient seen and examined at bedside. No acute events overnight. No new complaints. Labs today showed sodium 133, BUN 59, creatinine 9.01, glucose 93, A1c 5.2, calcium 12.3, vitamin D 135, calcitriol 55.6, PTH 16.6. For ultrasound-guided fistulogram today. Review of systems: Pertinent positives and negatives as discussed in HPI, a complete review of systems was performed and all other systems are negative. Physical examination: Vital signs reviewed General: non toxic, no distress, appears at stated age, Derm: no unusual rashes/lesions, warm Head: atraumatic, normocephalic, symmetric Eyes: EOMI, anicteric sclera, pupils equal round reactive to light ENT: Nose and ears atraumatic Neck: No cervical lymphadenopathy, trachea midline, supple Mouth: no lip lesion, mucus membranes moist Cardiovascular: S1S2 reg, no murmur Lungs: CTA bilateral, no rhonchi, no rales, no accessory muscle use Abdominal: soft, nondistended, nontender to palpation, no guarding Ext: muscle strength 5 out of 5 in all 4 extremities grossly, no gross muscle atrophy, no contractures, positive dorsalis pedis pulse bilateral, no edema, AV fistula noted on left forearm with 1 vessel firm but mobile without any bl eeding, bruits, bruising or swelling noted Neuro: CN II-XI grossly intact, no gross focal neuro deficits Psych: Alert and oriented x 3, appropriate affect and mood Assessment/Plan: 74-year-old female has a history of ESRD here for thrombosed left upper extremity forearm looped AV graft #. ESRD with thrombosed AV graft status post ultrasound-guided fistulogram with mechanical thrombectomy and angioplasty -Nephrology consulted for dialysis -Vascular surgery consulted. Procedure was done today however AV graft was still not able to be accessed for dialysis. Patient will be taken to surgery tomorrow -N.p.o. at midnight #. Hypercalcemia, likely due to above #. Hypermagnesemia likely due to above -Normal VitD, PTH and phosphorus -Monitor Ca and Mag #. First-degree AV block -Seen on EKG -Patient stable and asymptomatic -Monitor for now #. Type II diabetes with hyperglycemia, resolved -Glucose 93 -A1c 5.2 -Insulin sliding scale ACHS -Glucose Accu-Cheks ACHS. Monitor for hypoglycemia Chronic Conditions: #. CAD #. Hyperlipidemia #. Hypertension #. Osteoarthritis #. Diabetes -Resumed home atorvastatin, carvedilol and isosorbide mononitrate F: Oral intake E: Monitor electrolytes particularly calcium and magnesium N: Renal diet. N.p.o. at midnight A: Can self ambulate DVT ppx: Heparin subcu CODE STATUS: Full Discussed with: Patient Anticipated discharge place: Home I have seen and evaluated the patient today. Discussed with the resident and agree with the residents finding and plan as documented in the resident's note. Changes highlighted in blue font. Objective - Vital Signs Vital signs: Vital Signs Temp 98 F 11/04/24 01:10 Pulse 72 11/04/24 01:10 Resp 17 11/04/24 01:10 BP 110/67 11/04/24 01:10 Pulse Ox 96 11/04/24 01:10 FiO2 Intake & Output 11/03/24 11/04/24 11/04/24 18:59 06:59 18:59 Intake Total 0 Balance 0 Weight 79.832 kg Intake: Oral 0 Other: # Voids 1 - Labs CBC & Chem 7: 11/03/24 13:04 11/04/24 03:48 Labs: Abnormal Lab Results - Last 24 Hours (Table) 11/03/24 11/03/24 11/03/24 Range/Units 13:04 13:04 13:04 RBC 3.70 L (3.80-5.40) m/uL PT 9.9 L (10.0-12.5) sec Sodium (137-145) mmol/L Chloride 97 L (98-107) mmol/L Carbon Dioxide 31 H (22-30) mmol/L BUN 50 H (7-17) mg/dL Creatinine 7.96 H* (0.52-1.04) mg/dL Glucose 138 H (74-99) mg/dL POC Glucose (mg/dL) (70-110) mg/dL Calcium 12.4 H (8.4-10.2) mg/dL Phosphorus (2.5-4.5) mg/dL Magnesium 4.2 H (1.6-2.3) mg/dL Vitamin D 25-Hydroxy (30.0-100.0) ng/mL 11/03/24 11/03/24 11/03/24 Range/Units 14:30 17:06 20:38 RBC (3.80-5.40) m/uL PT (10.0-12.5) sec Sodium (137-145) mmol/L Chloride (98-107) mmol/L Carbon Dioxide (22-30) mmol/L BUN (7-17) mg/dL Creatinine (0.52-1.04) mg/dL Glucose (74-99) mg/dL POC Glucose (mg/dL) 181 H (70-110) mg/dL Calcium (8.4-10.2) mg/dL Phosphorus 5.6 H (2.5-4.5) mg/dL Magnesium (1.6-2.3) mg/dL Vitamin D 25-Hydroxy 135.0 H (30.0-100.0) ng/mL 11/04/24 Range/Units 03:48 RBC (3.80-5.40) m/uL PT (10.0-12.5) sec Sodium 133 L (137-145) mmol/L Chloride (98-107) mmol/L Carbon Dioxide (22-30) mmol/L BUN 59 H (7-17) mg/dL Creatinine 9.01 H* (0.52-1.04) mg/dL Glucose (74-99) mg/dL POC Glucose (mg/dL) (70-110) mg/dL Calcium 12.3 H (8.4-10.2) mg/dL Phosphorus (2.5-4.5) mg/dL Magnesium (1.6-2.3) mg/dL Vitamin D 25-Hydroxy (30.0-100.0) ng/mL
[2024-11-04 17:22] LABS: Glucose,Whole Blood 137 mg/dL (70-110)
[2024-11-04 18:45] LABS: Protein, Total 6.2 g/dL (6.2-8.2)
[2024-11-04 19:55] LABS: Glucose,Whole Blood 146 mg/dL (70-110)
[2024-11-05 05:16] LABS: African American GFR (CKD) 4 (>60 ml/min/1.73 sqM); Anion Gap 11 mmol/L; Blood Urea Nitrogen 70 mg/dL (7-17); Calcium 11.5 mg/dL (8.4-10.2); Carbon Dioxide 23 mmol/L (22-30); Chloride 100 mmol/L (98-107); Glucose 97 mg/dL (74-99); Non-African American GFR(CKD) 4 (>60 ml/min/1.73 sqM); Potassium 4.4 mmol/L (3.5-5.1); Sodium 134 mmol/L (137-145)
[2024-11-05 07:26] LABS: Glucose,Whole Blood 105 mg/dL (70-110)
[2024-11-05] MEDS: fentaNYL (PF) 50 MCG/1 ML VIAL IVP ONE (08:37)
[2024-11-05] MEDS: LIDOCAINE 1% INJ 10MG/ML (20 ML MDV) SQ ONE (08:37)
[2024-11-05] MEDS: MIDAZOLAM 2 MG/2 ML VIAL IVP ONE (08:56)
[2024-11-05] MEDS: HEPARIN SODIUM 1,000 UN/ML (10ML VL) IVP ONE (08:57)
[2024-11-05] MEDS: SODIUM CHLORIDE 0.9% 250 ML IV ONE (08:57)
--- NOTE | 2024-11-05 09:15 | P.OP ---
Date of Procedure: 11/05/24 Preoperative Diagnosis: ESRD Occluded left upper extremity loop AVG Postoperative Diagnosis: Same Procedure(s) Performed: Right internal jugular vein tunneled hemodialysis catheter placement under ultrasound and fluoroscopic guidance Conscious sedation x 30 minutes Anesthesia: local Surgeon: Luis Lockwood Estimated Blood Loss (ml): 5 Pathology: none sent Condition: stable Disposition: floor Indications for Procedure: 74 year old female with history of ESRD on HD via left loop AVG presented to the ER secondary to thrombosed graft. She underwent thrombolysis and balloon angioplasty to open the graft but it thrombosed again and she presents today for tunneled HD catheter placement Description of Procedure: After written and informed consent was obtained and all risks, benefits and competitions were described the patient was brought to the [facility] and laid in a supine position. The area of the right neck was prepped and draped in the usual sterile fashion. Timeout was performed in normal fashion and antibiotics were administered prior to access. Utilizing ultrasound the right internal jugular vein was visualized and shown to be patent without any thrombus. Under ultrasound guidance the vein was then cannulated with dark nonpulsatile blood flow visualized. Guidewire was placed under direct visualization of fluoroscopy into the superior vena cava. Attention was then placed to the chest wall. A small incision was created on the lateral aspect of the chest wall as well as the access site at the neck. A 19 centimeter palindrome hemodialysis catheter was then tunneled from the chest wall to the neck. Serial dilation was then performed and breakaway sheath was placed into the internal jugular vein under direct visualization of fluoroscopy. The catheter was then placed within the break away sheath the sheath was removed. The ports were assessed for patency and marti and flushed easily and then were hep-locked. The catheter was then sutured in place, cleansed and dressings were placed. The patient tolerated procedure well.
--- NOTE | 2024-11-05 09:30 | IR ---
EXAMINATION TYPE: IR cvc insert central tunneled DATE OF EXAM: 11/05/2024 9:10 AM COMPARISON: Pre Operative Images if available both CT/MRI or plain film CLINICAL INDICATION: Female, 74 years old with history of dialysis, 2.4min of fluoro; TECHNIQUE: IR cvc insert central tunneled, multiple fluoroscopic images provided for procedure. DAP: 3.19 G/cm2 FINDINGS: IMPRESSION: 1. Report was generated for administrative purposes only. 2. Please see the operative/procedural note for further details. [facility], , 11/05/2024 9:28 AM
--- NOTE | 2024-11-05 09:39 | XR ---
EXAMINATION TYPE: XR chest 1V confirm line plcmt DATE OF EXAM: 11/05/2024 9:29 AM COMPARISON: Chest radiographs from 11/03/2024 CLINICAL INDICATION: Female, 74 years old with history of Dialysis cath placement; [facility] TECHNIQUE: XR chest 1V confirm line plcmt Frontal view of the chest. FINDINGS: Lungs/Pleura: There is no evidence of pleural effusion, focal consolidation, or pneumothorax. Pulmonary vascularity: Unremarkable. Heart/mediastinum: Cardiomediastinal silhouette is unremarkable. Musculoskeletal: No acute osseous pathology. Other findings: None Lines/Tubes: Right internal jugular central venous catheter with distal tip at the cavoatrial junction. IMPRESSION: Mild pulmonary edema with central venous catheter appropriate position. [facility], , 11/05/2024 9:36 AM
--- NOTE | 2024-11-05 11:24 | P.PN ---
Subjective Patient is seen in follow-up for end-stage renal disease. She is maintained on hemodialysis on Friday schedule. Permacath placed this morning. Tolerating dialysis well. Vital signs are stable. General: No acute distress. HEENT: Head exam is unremarkable. LUNGS: No audible rhonchi or wheezes. HEART: Rate and Rhythm are regular. ABDOMEN: Nontender. EXTREMITITES: No edema. Objective - Vital Signs Vital signs: Vital Signs Temp 97.9 F 11/05/24 09:17 Pulse 73 11/05/24 09:17 Resp 17 11/05/24 09:17 BP 134/70 11/05/24 09:17 Pulse Ox 98 11/05/24 09:17 FiO2 Intake & Output 11/04/24 11/05/24 11/05/24 18:59 06:59 18:59 Intake Total 20 50 Balance 20 50 Intake: IV 20 50 Other: # Voids 3 1 - Labs CBC & Chem 7: 11/03/24 13:04 11/05/24 04:27 Labs: Abnormal Lab Results - Last 24 Hours (Table) 11/04/24 11/04/24 11/04/24 Range/Units 12:00 17:20 19:48 Sodium (137-145) mmol/L BUN (7-17) mg/dL Creatinine (0.52-1.04) mg/dL POC Glucose (mg/dL) 114 H 137 H 146 H (70-110) mg/dL Calcium (8.4-10.2) mg/dL 11/05/24 Range/Units 04:27 Sodium 134 L (137-145) mmol/L BUN 70 H (7-17) mg/dL Creatinine 9.74 H* (0.52-1.04) mg/dL POC Glucose (mg/dL) (70-110) mg/dL Calcium 11.5 H (8.4-10.2) mg/dL Assessment and Plan Plan: Assessment: 1. End-stage renal disease maintained on hemodialysis on Friday Satu schedule. 2. Clotted AV graft. Vascular surgery following. Declot unsuccessful. Permacath placed. 3. Chronic kidney disease mineral bone disease. Calcium 12.3-->11.5. Phosphorus 5.6. Vitamin D level high at 135. 125 D3 level 55. PTH low at 16.6. 4. Diabetes mellitus. 5. 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 Plan: Avoid any calcium, vitamin D and magnesium supplementations. Currently seen while undergoing hemodialysis. Another treatment tomorrow per her outpatient schedule. Dialysis today with low calcium bath. I discussed the case at length with patient's signal operator, Dr. Chu. Patient's calcium level tends to be around 12 and this has been worked up ext ensively including the workup mentioned above. PTH related peptide was noted to be minimally elevated. She was referred to oncology and endocrinology. She had imaging done with CAT scans and also colonoscopy with no evidence of malignancy. Additionally patient has also been tried on Sensipar but was unable to tolerate the medication. States she has an appointment coming up with endocrinology next week. Potential discharge after dialysis today.
[2024-11-05] MEDS: MIDODRINE 5 MG TAB PO STA (11:42)
[2024-11-05 12:13] LABS: Glucose,Whole Blood 98 mg/dL (70-110)
--- NOTE | 2024-11-05 13:29 | P.DS ---
Providers Date of admission: 11/03/24 17:52 Attending physician: Anil Schwab Consults: 11/03/24 14:05 Consult Physician Routine Consulting Provider: Luis Lockwood Consult Reason/Comments: HD access issues Do you want consulting provider notified?: Yes 11/03/24 14:21 Consult Physician Routine Consulting Provider: Aaron Thompson Consult Reason/Comments: esrd Do you want consulting provider notified?: Yes [facility]: [facility] Course: Patient is a 74-year-old female with CAD, ESRD (dialysis Friday), hyperlipidemia, hypertension, osteoarthritis, diabetes (diet- controlled) is here for the evaluation of malfunctioning dialysis port of the left arm. On admission: Vitals: 9.73 Fahrenheit, pulse rate 72, respiratory rate 18, blood pressure 147/72, oxygen saturation 98 % on room air Labs: WBC 8.1, hemoglobin 11.4, platelet count 360,000, PTT 9.9, INR 0.9, PTT 22.4. Chloride 97, bicarb 31, BUN 50, creatinine 7.96, glucose 138, calcium 12.4, magnesium 4.2, AST 20, ALT 18. Troponins negative. Imaging: EKG independently interpreted show sinus rhythm with a rate of 66, first-degree AV block with AZ interval 221 MS, normal axis, no ST-T changes, good R wave progression, QTc 385 MS. Chest x-ray showed mild pulmonary edema. Patient was admitted for management of left upper extremity forearm loop AV graft thrombosis. Vascular and nephrology consulted. Ultrasound guided fistulogram was attempted however AV graft was still thrombosed. Right internal jugular vein tunneled hemodialysis cath was placed instead. Patient was able to have a session of dialysis inpatient and no other complications or new symptoms occurred. Patient is cleared for discharge today and is sent home with oral aspirin. Metoprolol succinate was discontinued. Patient is advised to follow- up with PCP on outpatient basis. Final Diagnosis: #. ESRD with thrombosed AV graft status post ultrasound-guided fistulogram with mechanical thrombectomy and angioplasty and right internal jugular vein tunneled hemodialysis catheter placement #. Hypercalcemia, likely due to above #. Hypermagnesemia likely due to above #. First-degree AV block #. CAD #. Hyperlipidemia #. Hypertension #. Osteoarthritis #. Diabetes Physical examination: Vital signs reviewed General: non toxic, no distress Derm: no unusual rashes/lesions, warm Head: atraumatic, normocephalic, symmetric Eyes: EOMI, anicteric sclera, pupils equal round reactive to light ENT: Nose and ears atraumatic Neck: No cervical lymphadenopathy, trachea midline, supple, hemodialysis cath noted on right IJV Mouth: no lip lesion, mucus membranes moist Cardiovascular: S1S2 reg, no murmur Lungs: CTA bilateral, no rhonchi, no rales, no accessory muscle use Abdominal: soft, nondistended, nontender to palpation, no guarding Ext: muscle strength 5 out of 5 in all 4 extremities grossly, no gross muscle atrophy, no contractures, positive dorsalis pedis pulse bilateral, no edema, AV fistula noted on left forearm Neuro: CN II-XI grossly intact, no gross focal neuro deficits Psych: Alert, oriented, appropriate affect and mood A total of 32 minutes of time were spent preparing this complex discharge summary. Patient was discharged on 11/05/2024 at 1046. I have seen and evaluated the patient today. Discussed with the resident and agree with the residents finding and plan as documented in the resident's note. Changes highlighted in blue font. Patient Condition at Discharge: Stable Plan - Discharge Summary Discharge Rx Participant: No New Discharge Prescriptions: New Aspirin 81 mg PO DAILY #90 tab Continue Folic Acid/Vit B Complex and C [Tea-Jn Tablet] 0.8 mg PO HS Atorvastatin [Lipitor] 40 mg PO HS Nitroglycerin 0.4 mg SL Q5M PRN PRN Reason: Chest Pain carvediloL [Coreg] 6.25 mg PO BID Isosorbide Mononitrate ER [Imdur] 30 mg PO DAILY Discontinued Metoprolol Succinate (ER) [Toprol Xl] 25 mg PO DAILY Discharge Medication List Atorvastatin [Lipitor] 40 mg PO HS 07/07/24 [History] Folic Acid/Vit B Complex and C [Tea-Jn Tablet] 0.8 mg PO HS 07/07/24 [History] Nitroglycerin 0.4 mg SL Q5M PRN 07/09/24 [History] Isosorbide Mononitrate ER [Imdur] 30 mg PO DAILY 11/03/24 [History] carvediloL [Coreg] 6.25 mg PO BID 11/03/24 [History] Aspirin 81 mg PO DAILY #90 tab 11/04/24 [Rx] Follow up Appointment(s)/Referral(s): Stephanie Gay MD [Primary Care Provider] - 11/19/24 12:00 pm (appointment with Chelly WILLIAM) Sarah Chu DO [REFERRING] - 11/06/24 (hemodialysis continue Friday, , Friday schedule.) Patient Instructions/Handouts: Fistulogram (DC) Activity/Diet/Wound Care/Special Instructions: Please see PCP for follow-up Discharge Disposition: HOME SELF-CARE
[2024-11-05 15:24] LABS: Glucose,Whole Blood 151 mg/dL (70-110)
[2024-11-05] MEDS: MIDODRINE 5 MG TAB PO PRN (15:35)
[2024-11-05] MEDS ORDERED: SODIUM CHLORIDE 0.9% 500 ML 500 ML IV ONE (15:51)
[2024-11-05 16:17] VITALS: PULSE 70
[2024-11-05 18:52] VITALS: BP 102/69; RESP 20; TEMP 98.4
== END 2024-11-05 16:57 | disposition home or self-care (01) | DRG 252 ==
LOC: EC 12:12 → INTOOBSV 14:24 → 5NMEDONC 14:24 → OBSVTOIN 17:52
PROVIDERS: ADMIT Student in an Organized Health Care Education/Training Program; ATTEND Student in an Organized Health Care Education/Training Program
PROC: 037834Z Dilation of Left Brachial Artery with Drug-eluting Intraluminal Device, Percutaneous Approach (ICD-10-PCS; 2024-11-04)
PROC: 03C83ZZ Extirpation of Matter from Left Brachial Artery, Percutaneous Approach (ICD-10-PCS; 2024-11-04)
PROC: 5A1D70Z Performance of Urinary Filtration, Intermittent, Less than 6 Hours Per Day (ICD-10-PCS; 2024-11-04)
PROC: B51W1ZZ Fluoroscopy of Dialysis Shunt/Fistula using Low Osmolar Contrast (ICD-10-PCS; principal; 2024-11-04 12:00)
PROC: 02HV33Z Insertion of Infusion Device into Superior Vena Cava, Percutaneous Approach (ICD-10-PCS; 2024-11-05)
PROC: 0JH63XZ Insertion of Tunneled Vascular Access Device into Chest Subcutaneous Tissue and Fascia, Percutaneous Approach (ICD-10-PCS; 2024-11-05)
PROC: B5181ZA Fluoroscopy of Superior Vena Cava using Low Osmolar Contrast, Guidance (ICD-10-PCS; 2024-11-05)
PROC: B548ZZA Ultrasonography of Superior Vena Cava, Guidance (ICD-10-PCS; 2024-11-05)
DX: T82.868A Thrombosis due to vascular prosthetic devices, implants and grafts, initial encounter (principal); N18.6 End stage renal disease; I12.0 Hypertensive chronic kidney disease with stage 5 chronic kidney disease or end stage renal disease; E83.41 Hypermagnesemia; Z99.2 Dependence on renal dialysis; E11.22 Type 2 diabetes mellitus with diabetic chronic kidney disease; E11.65 Type 2 diabetes mellitus with hyperglycemia; E83.52 Hypercalcemia; I44.0 Atrioventricular block, first degree; M19.90 Unspecified osteoarthritis, unspecified site; E78.5 Hyperlipidemia, unspecified; I25.10 Atherosclerotic heart disease of native coronary artery without angina pectoris; Y71.2 Prosthetic and other implants, materials and accessory cardiovascular devices associated with adverse incidents; M89.8X8 Other specified disorders of bone, other site; Y83.2 Surgical operation with anastomosis, bypass or graft as the cause of abnormal reaction of the patient, or of later complication, without mention of misadventure at the time of the procedure; Z79.82 Long term (current) use of aspirin; Z79.899 Other long term (current) drug therapy; Z87.442 Personal history of urinary calculi; Z96.653 Presence of artificial knee joint, bilateral; Z91.048 Other nonmedicinal substance allergy status
CPT/HCPCS: 36415; 71046; 80048; 80053; 82306; 82652; 83036; 83735; 83970; 84100; 84165; 84484; 85025; 85610; 85730; 86334; 90935; 93005; 99285

== ENCOUNTER → 2024-11-29 | Outpatient (CLI) | payer MEDICARE ==
--- NOTE | 2024-11-29 15:25 | NM ---
EXAMINATION TYPE: NM parathyroid w/spect DATE OF EXAM: 11/29/2024 COMPARISON: NONE CLINICAL INDICATION: Female, 74 years old with history of E21.0; primary hyperparathyroidism TECHNIQUE: Following administration of 23.8 mCi Tc99m Sestamibi. Anterior projection images of the neck and ches t were obtained 10 minutes and 3 hours post injection. SPECT images of the neck and chest were obtai jeanne and reconstructed in three axes. FINDINGS: Thyroid tracer washout: Delayed images demonstrate near-complete tracer washout from the thyroid. Parathyroid uptake: None. The delayed images do not demonstrate any focal abnormal persistent uptake in the region of the parathyroid glands to suggest parathyroid adenoma. Normal uptake: There is physiological tracer uptake in the salivary glands. IMPRESSION: Normal parathyroid imaging study. No evidence for abnormal mediastinal uptake to suggest mediastinal parathyroid adenoma [facility], , 11/29/2024 3:22 PM
[2024-11-29 15:43] LABS: ALT 20 U/L (8-44); AST 25 U/L (13-35); Albumin 4.5 g/dL (3.8-4.9); Albumin/Globulin Ratio 1.41 Ratio (1.60-3.17); Alkaline Phosphatase 87 U/L (41-126); BUN/Creat Ratio 5.23 Ratio (12.00-20.00); Blood Urea Nitrogen 29.8 mg/dL (9.0-27.0); Carbon Dioxide 30.3 mmol/L (21.6-31.8); Chloride 100 mmol/L (96-109); Globulin 3.2 g/dL (1.6-3.3); Glucose 95 mg/dL (70-110); Potassium 5.1 mmol/L (3.5-5.5); Sodium 143 mmol/L (135-145); Total Bilirubin 0.6 mg/dL (0.3-1.2); Total Protein 7.7 g/dL (6.2-8.2)
== END | disposition home or self-care (01) ==
LOC: RADNMMAIN 10:21
PROVIDERS: ATTEND Internal Medicine Endocrinology, Diabetes & Metabolism
DX: E21.0 Primary hyperparathyroidism (principal)
CPT/HCPCS: 80053; 82306; 83970; 78071; A9500

== ENCOUNTER 2024-12-03 14:22 | Observation (INO) | payer MEDICARE ==
--- NOTE | 2024-12-03 16:48 | ED ---
Recheck HPI - General Chief Complaint: Recheck/Abnormal Lab/Rx Stated Complaint: Cath Issues Time Seen by Provider: 12/03/24 14:35 Source: patient, RN notes reviewed Mode of arrival: ambulatory Limitations: no limitations - History of Present Illness Initial Comments: This is a 74-year-old female multiple comorbid conditions including end-stage renal disease on hemodialysis Friday, , Friday, hypertension, diabetes presenting to emergency department with concern for dialysis catheter issue. Patient states that she had her dialysis catheter placed approximately [address] Lockwood, states that since the original surgery she has been having discomfort in the site. She feels like there is a "kink' in her hemodialysis catheter. She states that she missed her dialysis session yesterday due to not feeling well with generalized weakness and abdominal pain. Patient contacted her vascular surgeons office this morning where they in structed to report to the emergency department for further evaluation. - Related Data Home Medications Medication Instructions Recorded Confirmed Atorvastatin [Lipitor] 40 mg PO HS 07/07/24 12/03/24 Folic Acid/Vit B Complex and C 0.8 mg PO HS 07/07/24 12/03/24 [Tea-Jn Tablet] Nitroglycerin 0.4 mg SL Q5M PRN 07/09/24 12/03/24 Isosorbide Mononitrate ER [Imdur] 30 mg PO DAILY 11/03/24 12/03/24 carvediloL [Coreg] 6.25 mg PO BID 11/03/24 12/03/24 Aspirin 81 mg PO HS 12/03/24 12/03/24 Allergies Allergy/AdvReac Type Severity Reaction Status Date / Time adhesive tape Allergy Rash/Hives Verified 12/03/24 20:16 Review of Systems ROS Statement: Those systems with pertinent positive or pertinent negative responses have been documented in the HPI. ROS Other: All systems not noted in ROS Statement are negative. Past Medical History Past Medical History: Chest Pain / Angina, Diabetes Mellitus, Hyperlipidemia, Hypertension, Osteoarthritis (OA), Renal Disease Additional Past Medical History / Comment(s): Diet Controlled Diabetes. Dialysis TUTHSA. Hx kidney stones. History of Any Multi-Drug Resistant Organisms: None Reported Past Surgical History: Joint Replacement Additional Past Surgical History / Comment(s): Procedure for kidney stone X2, bilateral knee replacement. Past Anesthesia/Blood Transfusion Reactions: No Reported Reaction, Motion Sickness Past Psychological History: No Psychological Hx Reported Smoking Status: Never smoker Past Alcohol Use History: None Reported Past Drug Use History: None Reported - Past Family History Brother(s) Family Medical History: Cancer General Exam Limitations: no limitations General appearance: alert, in no apparent distress ENT exam: Present: normal exam, mucous membranes moist Neck exam: Present: normal inspection, other (right upper neck IJ dialysis cath). Absent: tenderness, meningismus, lymphadenopathy Respiratory exam: Present: normal lung sounds bilaterally. Absent: respiratory distress, wheezes, rales, rhonchi, stridor Cardiovascular Exam: Present: regular rate, normal rhythm, normal heart sounds. Absent: systolic murmur, diastolic murmur, rubs, gallop, clicks GI/Abdominal exam: Present: soft, normal bowel sounds. Absent: distended, tenderness, guarding, rebound, rigid Extremities exam: Present: normal inspection, full ROM, normal capillary refill. Absent: tenderness, pedal edema, joint swelling, calf tenderness Back exam: Present: normal inspection Neurological exam: Present: alert, oriented X3, CN II-XII intact Course Vital Signs 12/03/24 12/03/24 12/03/24 14:25 18:30 21:46 Temperature 97.9 F 97.6 F Pulse Rate 93 80 82 Respiratory 17 19 18 Rate Blood Pressure 204/117 193/115 182/112 O2 Sat by Pulse 98 95 97 Oximetry Medical Decision Making - Medical Decision Making Was pt. sent in by a medical professional or institution (, PA, INFORMATION ANALYST, urgent care, hospital, or custodial...) When possible be specific @ -Patient was advised by vascular she reports Emergency Department for further evaluation. Did you speak to anyone other than the patient for history (EMS, parent, family, police, friend...)? What history was obtained from this source @ -No Did you review nursing and triage notes (agree or disagree)? Why? @ -I reviewed and agree with nursing and triage notes Were old charts reviewed (outside hosp., previous admission, EMS record, old EKG, old radiological studies, urgent care reports/EKG's, custodial records)? Report findings @ -No old charts were reviewed Differential Diagnosis (chest pain, altered mental status, abdominal pain women, abdominal pain men, vaginal bleeding, weakness, fever, dyspnea, syncope, heada liseth, dizziness, GI bleed, back pain, seizure, CVA, palpatations, mental health, musculoskeletal)? @ -Differential Weakness: Hypoglycemia, shock, sepsis, hyponatremia, anemia, infection, CA, ETOH, adverse medicine reaction, overdose, stroke, this is not meant to be an all-inclusive list. EKG interpreted by me (3pts min.). @ -Completed at 1737 sinus rhythm with noted first-degree AV block, ventricular rate 78, OR interval 219, QRS 84, QTc 382. X-rays interpreted by me (1pt min.). @ -chest xray Catheter placement on the right with tips in the distal superior vena cava region with no pneumothorax evident. CT interpreted by me (1pt min.). @ -None done U/S interpreted by me (1pt. min.). @ -None done What testing was considered but not performed or refused? (CT, X-rays, U/S, labs)? Why? @ -None What meds were considered but not given or refused? Why? @ -None Did you discuss the management of the patient with other professionals (professionals i.e. , PA, INFORMATION ANALYST, lab, RT, psych nurse, social service technician, software computer specialist, teacher, safety instruction police officer, family service caseworker)? Give summary @ -Spoke with on-call adjustment clerk who states that they will follow-up with the patient in the morning. I spoke with sound physician who was agreed to meet the patient with vascular nephrology on consult. Was smoking cessation discussed for >3mins.? @ -No Was critical care preformed (if so, how long)? @ -No Were there social determinants of health that impacted care today? How? (Homelessness, low income, unemployed, alcoholism, drug addiction, transportation, low edu. Level, literacy, decrease access to med. care, fdc, rehab)? @ -No Was there de-escalation of care discussed even if they declined (Discuss DNR or withdrawal of care, Hospice)? DNR status @ -No What co-morbidities impacted this encounter? (DM, HTN, Smoking, COPD, CAD, Cancer, CVA, ARF, Chemo, Hep., AIDS, mental health diagnosis, sleep apnea, morbid obesity)? @ -None Was patient admitted / discharged? Hospital course, mention meds given and route, prescriptions, significant lab abnormalities, going to OR and other pertinent info. @ -Admitted. 73-year-old female presenting with concern for dialysis catheter malfunction. Overall patient is well-appearing. She is mildly hypertensive on arrival. Labs concerning for elevated creatinine of 8.07, BUN 46, elevated calcium of 14.6, phosphorus 5.0, magnesium 4.8. EKG no changes with a sinus rhythm and first-degree AV block. Chest x-ray unremarkable. Patient was admitted to internal medicine with nephrology and vascular on consult. Case discussed with Dr. Barber Undiagnosed new problem with uncertain prognosis? @ -No Drug Therapy requiring intensive monitoring for toxicity (Heparin, Nitro, Insulin, Cardizem)? @ -No Were any procedures done? @ -No Diagnosis/symptom? @ -Port dialysis catheter malfunction Acute, or Chronic, or Acute on Chronic? @ -Acute Uncomplicated (without systemic symptoms) or Complicated (systemic symptoms)? @ -Complicated Side effects of treatment? @ -No Exacerbation, Progression, or Severe Exacerbation? @ -No Poses a threat to life or bodily function? How? (Chest pain, USA, CA, pneumonia, PE, COPD, DKA, ARF, appy, cholecystitis, CVA, Diverticulitis, Homicidal, Suicidal, threat to staff... and all critical care pts) @ -No - Lab Data Result diagrams: 12/03/24 17:21 12/03/24 17:21 Lab Results 12/03/24 12/03/24 12/03/24 Range/Units 17:21 17:21 17:21 WBC 8.23 (4.50-10.00) 10*3/uL RBC 3.91 L (4.10-5.20) 10*6/uL Hgb 12.4 (12.0-15.0) g/dL Hct 37.9 (37.2-46.3) % MCV 96.9 (80.0-97.0) fL MCH 31.7 (27.0-32.0) pg MCHC 32.7 (32.0-37.0) g/dL Plt Count 352 (140-440) 10*3/uL MPV 9.3 L (9.5-12.2) fL Immature Gran % (Auto) 0.1 % Neutrophils % 66.3 % Lymphocytes % 19.6 % Monocytes % 10.1 % Eosinophils % 2.9 % Basophils % 1.0 % Immature Gran # 0.01 (0.00-0.04) 10*3/uL Neutrophils # 5.46 (1.80-7.70) 10*3/uL Lymphocytes # 1.61 (0.90-5.00) 10*3/uL Monocytes # 0.83 (0.20-1.00) 10*3/uL Eosinophils # 0.24 (0.04-0.35) 10*3/uL Basophils # 0.08 (0.00-0.10) 10*3/uL PT 9.7 L (10.0-12.5) sec INR 0.9 (<1.2) APTT 20.9 L (22.0-30.0) sec Sodium 139 (137-145) mmol/L Potassium 5.4 H (3.5-5.1) mmol/L Chloride 98 (98-107) mmol/L Carbon Dioxide 33 H (22-30) mmol/L Anion Gap 8 mmol/L BUN 46 H (7-17) mg/dL Creatinine 8.07 H* (0.52-1.04) mg/dL Est GFR (CKD-EPI)AfAm 5 (>60 ml/min/1.73 sqM) Est GFR (CKD-EPI)NonAf 4 (>60 ml/min/1.73 sqM) Glucose 110 H (74-99) mg/dL Calcium 14.6 H* (8.4-10.2) mg/dL Phosphorus 5.0 H (2.5-4.5) mg/dL Magnesium 4.8 H (1.6-2.3) mg/dL Total Bilirubin 0.8 (0.2-1.3) mg/dL AST 34 (14-36) U/L ALT 19 (4-34) U/L Alkaline Phosphatase 77 (38-126) U/L NT-Pro-B Natriuret Pep 3870 pg/mL Total Protein 7.8 (6.3-8.2) g/dL Albumin 4.6 (3.5-5.0) g/dL Disposition Clinical Impression: Hemodialysis catheter malfunction Disposition: ADMITTED IP TO THIS [facility] Condition: Stable Is patient prescribed a controlled substance at d/c from ED?: No Decision to Admit Reason: Admit from EC Decision Date: 12/03/24 Decision Time: 21:09
[2024-12-03 17:29] LABS: Basophils # (A) 0.08 10*3/uL (0.00-0.10); Eosinophils # (A) 0.24 10*3/uL (0.04-0.35); Eosinophils % (A) 2.9 %; HCT 37.9 % (37.2-46.3); HGB 12.4 g/dL (12.0-15.0); Lymphocytes # (A) 1.61 10*3/uL (0.90-5.00); Lymphocytes % (A) 19.6 %; MCH 31.7 pg (27.0-32.0); MCHC 32.7 g/dL (32.0-37.0); MCV 96.9 fL (80.0-97.0); Mean Platelet Volume 9.3 fL (9.5-12.2); Monocytes # (A) 0.83 10*3/uL (0.20-1.00); Monocytes % (A) 10.1 %; Neutrophils # (A) 5.46 10*3/uL (1.80-7.70); Neutrophils % (A) 66.3 %; Platelet Count 352 10*3/uL (140-440); RBC 3.91 10*6/uL (4.10-5.20); RDW 14.1 % (11.5-14.5); WBC 8.23 10*3/uL (4.50-10.00)
[2024-12-03 17:42] LABS: ALT 19 U/L (4-34); African American GFR (CKD) 5 (>60 ml/min/1.73 sqM); Albumin 4.6 g/dL (3.5-5.0); Anion Gap 8 mmol/L; Blood Urea Nitrogen 46 mg/dL (7-17); Carbon Dioxide 33 mmol/L (22-30); Chloride 98 mmol/L (98-107); Glucose 110 mg/dL (74-99); Non-African American GFR(CKD) 4 (>60 ml/min/1.73 sqM); Sodium 139 mmol/L (137-145); Total Bilirubin 0.8 mg/dL (0.2-1.3); Total Protein 7.8 g/dL (6.3-8.2)
[2024-12-03 17:47] LABS: INR 0.9 (<1.2); Prothrombin Time 9.7 sec (10.0-12.5)
[2024-12-03 17:50] LABS: NT-Pro-B-Type Natriuretic Pept 3870 pg/mL
[2024-12-03 17:51] LABS: Partial Thromboplastin Time 20.9 sec (22.0-30.0)
[2024-12-03 18:01] LABS: AST 34 U/L (14-36); Alkaline Phosphatase 77 U/L (38-126); Magnesium 4.8 mg/dL (1.6-2.3); Potassium 5.4 mmol/L (3.5-5.1)
[2024-12-03 18:05] LABS: Calcium 14.6 mg/dL (8.4-10.2)
--- NOTE | 2024-12-03 19:45 | XR ---
EXAMINATION TYPE: XR chest 2V DATE OF EXAM: 12/03/2024 6:55 PM COMPARISON: None. CLINICAL INDICATION: Female, 74 years old with history of r/o dialysis cath malplacement, TECHNIQUE: XR chest 2V view(s) obtained. FINDINGS: The heart size is normal. The pulmonary vasculature is normal. The lungs are clear. Right double lumen catheter is present with the tips in the distal superior luz a cava region. IMPRESSION: 1. No acute pulmonary process. 2. Catheter placement on the right with the tips in the distal superior vena cava region. No pneumoth orax is evident. [facility], , 12/03/2024 7:43 PM
[2024-12-03] MEDS ORDERED: NALOXONE 0.4 MG/ML 1 ML VIAL IV PRN ×2 (21:09→23:53)
[2024-12-03] MEDS: carvediloL 6.25 MG TAB PO SCH (23:49)
[2024-12-04] MEDS: ACETAMINOPHEN TAB 325 MG TAB PO STA (01:48)
--- NOTE | 2024-12-04 03:38 | P.HPIM ---
History of Present Illness H&P Date: 12/03/24 Chief Complaint: Dialysis catheter site discomfort Patient is a 74 year old female with past medical history of diabetes mellitus, hyperlipidemia, hypertension, kidney stones, ESRD on dialysis, presented to the ED with dialysis catheter site discomfort. Patient is on dialysis schedule Friday. She presented with the concerns for a dialysis catheter issue. She states that the last catheter was placed a month ago with Dr. Lockwood. She reports having discomfort at the site of the catheter since the surgery. She reports pain as well as bleeding from the site since the catheter was placed in. She also feels like there is a kink in the catheter. Additionally she reports having missed her dialysis session yesterday because she was not feeling well. She reports having generalized weakness and abdominal pain. She was instructed by her vascular surgeon's office to report to the emergency department for further evaluation of malfunctioning dialysis catheter. Patient was admitted to this hospital on 11/03/2024 for ESRD with thrombosed AV graft and underwent a right internal jugular vein tunneled hemodialysis catheter placement on 11/05/2024 and was discharged. She has been on dialysis for 1.5 years now and follows Friday, and Friday schedule. Her dry weight is 176 and usual ultrafiltration is 2L. She also reports of a history of staghorn calculus in the left kidney. Additionally, patient complains of back pain, but mentions it is more chronic in nature. Denies fever, chills, shortness of breath, cough, chest pain, palpitations, abdominal pain, nausea, vomiting, hematuria, dysuria, hematochezia, melena, headache, slurred speech, numbness, tingling, dizziness, lightheadedness, blurred vision, double vision. ED documentation reviewed. Vitals on admission T 97.9 F, FL 93 bpm, RR 17, BP 204/117, oxygen saturation 98% on room air. Repeat BP 193/115, 182/112 EKG independently interpreted as sinus rhythm, first-degree AV block, FL interval 219 ms, rate 70 bpm, QTc 382 ms Chest x-ray shows no acute pulmonary process, catheter placement on the right with the tip to the distal superior vena cava region, no pneumothorax evident Labs on admission show WBC 8.23, hemoglobin 12.4, platelet count 352, PT 9.7, APTT 20.9, sodium 139, potassium 5.4, bicarb 33, BUN 46, creatinine 8.07, calcium 14.6, phosphorus 5, magnesium 4.8, NT proBNP 3870 Review of systems: Pertinent positives and negatives as discussed in HPI, a complete review of systems was performed and all other systems are negative. Physical examination: Vital signs reviewed General: mild distress, appears at stated age Derm: warm, dry, intact Head: atraumatic, normocephalic, symmetric Eyes: EOMI, anicteric sclera Mouth: no lip lesion, mucus membranes moist Cardiovascular: S1 S2 reg, no murmur Lungs: CTA bilateral, no rhonchi, no rales, no accessory muscle use Abdominal: soft, non-tender to palpation Extremities: clotted AV graft on left upper extremity, No cyanosis, clubbing, or pedal edema. Neuro: Alert, Oriented,strength 4/5 in all four extremities Psych: well appearing, appropriate affect Assessment/Plan: Patient is a 74 year old female with past medical history of diabetes mellitus, hyperlipidemia, hypertension, kidney stones, ESRD on dialysis, presented to the ED with dialysis catheter site discomfort. Active: #. ESRD on hemodialysis, TTS schedule #. Hemodialysis catheter malfunction #. Hyperkalemia #. Hyperphosphatemia #. Hypomagnesemia Potassium 5.4, BUN 46, creatinine 8.07, phosphorus 5, magnesium 4.8 Chest x-ray shows no acute pulmonary process, catheter placement on the right with the tip to the distal superior vena cava region, no pneumothorax evident Hemodialysis schedule TTS Missed dialysis session on Appreciate Vascular surgery expertise for management of possible dialysis catheter malfunction Appreciate Nephrology expertise for dialysis orders and electrolyte management Monitor electrolyte levels #. Hypercalcemia #. ESRD on dialysis #. Back pain Ca 14.7 on admission Vit D 25-hydroxy 127.0 on 11/29/24 Vitamin D 1,25-dihydroxy 55.6 on 11/03/24 PTH 16.7 on 11/29/24 Obtain PTHrp, SPEP, UPEP, Beta 2 microglobulin to rule out mutliple myeloma #. First-degree AV block EKG independently interpreted as sinus rhythm, first-degree AV block, FL interval 219 ms, rate 70 bpm, QTc 382 ms Patient stable and asymptomatic Chronic: #. Hyperlipidemia #. History of angina #. Hypertension #. Diabetes mellitus Continue aspirin 80 mg p.o. at bedtime, atorvastatin 40 mg p.o. at bedtime, carvedilol 6.25 mg p.o. twice daily, Imdur 30 mg p.o. daily,insulin sliding scale F: None E: Replete as required N: Renal diet DVT prophylaxis: Heparin 5000 U SQ Q8HR GI prophylaxis: Pantoprazole 40 mg PO daily The patient is admitted with an anticipated less than 2 midnight stay for evaluation of dialysis catheter CODE STATUS: FULL CODE Discussed with: Patient Anticipated discharge place: Home Past Medical History Past Medical History: Chest Pain / Angina, Diabetes Mellitus, Hyperlipidemia, Hypertension, Osteoarthritis (OA), Renal Disease Additional Past Medical History / Comment(s): Diet Controlled Diabetes. Dialysis [facility]. Hx kidney stones. History of Any Multi-Drug Resistant Organisms: None Reported Past Surgical History: Joint Replacement Additional Past Surgical History / Comment(s): Procedure for kidney stone X2, bilateral knee replacement. Past Anesthesia/Blood Transfusion Reactions: No Reported Reaction, Motion Sickness Past Psychological History: No Psychological Hx Reported Smoking Status: Never smoker Past Alcohol Use History: None Reported Past Drug Use History: None Reported - Past Family History Brother(s) Family Medical History: Cancer Medications and Allergies Home Medications Medication Instructions Recorded Confirmed Type Atorvastatin [Lipitor] 40 mg PO HS 07/07/24 12/03/24 History Folic Acid/Vit B Complex and C 0.8 mg PO HS 07/07/24 12/03/24 History [Tea-Jn Tablet] Nitroglycerin 0.4 mg SL Q5M PRN 07/09/24 12/03/24 History Isosorbide Mononitrate ER [Imdur] 30 mg PO DAILY 11/03/24 12/03/24 History carvediloL [Coreg] 6.25 mg PO BID 11/03/24 12/03/24 History Aspirin 81 mg PO HS 12/03/24 12/03/24 History Allergies Allergy/AdvReac Type Severity Reaction Status Date / Time adhesive tape Allergy Rash/Hives Verified 12/03/24 20:16 Physical Exam Vitals: Vital Signs Temp Pulse Resp BP Pulse Ox 12/03/24 21:46 82 18 182/112 97 12/03/24 18:30 97.6 F 80 19 193/115 95 12/03/24 14:25 97.9 F 93 17 204/117 98 Intake and Output 12/03/24 12/03/24 12/03/24 06:59 14:59 22:59 Other: Weight 79.832 kg Results CBC & Chem 7: 12/03/24 17:21 12/03/24 17:21 Labs: Abnormal Lab Results - Last 24 Hours (Table) 12/03/24 12/03/24 12/03/24 Range/Units 17:21 17:21 17:21 RBC 3.91 L (4.10-5.20) 10*6/uL MPV 9.3 L (9.5-12.2) fL PT 9.7 L (10.0-12.5) sec APTT 20.9 L (22.0-30.0) sec Potassium 5.4 H (3.5-5.1) mmol/L Carbon Dioxide 33 H (22-30) mmol/L BUN 46 H (7-17) mg/dL Creatinine 8.07 H* (0.52-1.04) mg/dL Glucose 110 H (74-99) mg/dL Calcium 14.6 H* (8.4-10.2) mg/dL Phosphorus 5.0 H (2.5-4.5) mg/dL Magnesium 4.8 H (1.6-2.3) mg/dL
[2024-12-04] MEDS: PANTOPRAZOLE 40 MG TABLET PO SCH (06:35)
[2024-12-04] MEDS ORDERED: carvediloL 6.25 MG TAB PO SCH (07:30)
[2024-12-04 07:40] LABS: Basophils # (A) 0.06 10*3/uL (0.00-0.10); Basophils % (A) 0.8 %; Eosinophils % (A) 4.1 %; HCT 35.3 % (37.2-46.3); HGB 11.4 g/dL (12.0-15.0); Lymphocytes # (A) 1.38 10*3/uL (0.90-5.00); Lymphocytes % (A) 18.9 %; MCH 31.5 pg (27.0-32.0); MCHC 32.3 g/dL (32.0-37.0); MCV 97.5 fL (80.0-97.0); Mean Platelet Volume 9.6 fL (9.5-12.2); Monocytes # (A) 0.68 10*3/uL (0.20-1.00); Monocytes % (A) 9.3 %; Neutrophils # (A) 4.85 10*3/uL (1.80-7.70); Neutrophils % (A) 66.6 %; Platelet Count 336 10*3/uL (140-440); RBC 3.62 10*6/uL (4.10-5.20); WBC 7.29 10*3/uL (4.50-10.00)
[2024-12-04] MEDS ORDERED: HEPARIN SODIUM,PORCINE 5,000 UNIT/ML 1 ML VIAL SQ SCH (08:00)
[2024-12-04 08:25] LABS: ALT 16 U/L (4-34); AST 20 U/L (14-36); African American GFR (CKD) 4 (>60 ml/min/1.73 sqM); Alkaline Phosphatase 78 U/L (38-126); Anion Gap 9 mmol/L; Blood Urea Nitrogen 48 mg/dL (7-17); Carbon Dioxide 29 mmol/L (22-30); Chloride 98 mmol/L (98-107); Glucose 90 mg/dL (74-99); Magnesium 4.5 mg/dL (1.6-2.3); Non-African American GFR(CKD) 4 (>60 ml/min/1.73 sqM); Phosphorus 5.5 mg/dL (2.5-4.5); Potassium 5.6 mmol/L (3.5-5.1); Sodium 136 mmol/L (137-145); Total Bilirubin 0.7 mg/dL (0.2-1.3); Total Protein 6.7 g/dL (6.3-8.2)
[2024-12-04] MEDS: ISOSORBIDE MONONITRATE ER 30 MG TAB.ER.24H PO SCH (08:58)
[2024-12-04] MEDS: HEPARIN SODIUM,PORCINE 5,000 UNIT/ML 1 ML VIAL SQ SCH (08:58)
[2024-12-04 09:01] LABS: Calcium 13.1 mg/dL (8.4-10.2)
--- NOTE | 2024-12-04 12:11 | P.NPCON ---
History of Present Illness - Reason for Consult end stage renal disease - History of Present Illness Patient is a 74-year-old female with end-stage renal disease on hemodialysis for about a year now. Patient dialyzes at [facility] on a TTS schedule under the care of Dr. Chu. Patient has had right IJ permacath for about a month now and she states that she has had trouble with the catheter since it was placed. There have been multiple alarms and the catheter was not functioning well. There is concern that the catheter is kinked. Patient has a thrombosed AV graft in her left forearm. Last dialysis was on Friday. Patient has missed and Friday. Patient does not have significant urine output. She states that she feels unwell. No fever noted although patient felt feverish at home. She has not had any major discharge from the catheter. No complaints of shortness of breath Potassium was 5.6 today. Serum creatinine 9.0 and calcium was elevated at 13. No CHF noted on chest x-ray. Past Medical History Past Medical History: Chest Pain / Angina, Diabetes Mellitus, Hyperlipidemia, Hypertension, Osteoarthritis (OA), Renal Disease Additional Past Medical History / Comment(s): Diet Controlled Diabetes. Dialysis [facility]. Hx kidney stones. History of Any Multi-Drug Resistant Organisms: None Reported Past Surgical History: Joint Replacement Additional Past Surgical History / Comment(s): Procedure for kidney stone X2, bilateral knee replacement. Past Anesthesia/Blood Transfusion Reactions: No Reported Reaction, Motion Sickness Past Psychological History: No Psychological Hx Reported Smoking Status: Never smoker Past Alcohol Use History: None Reported Past Drug Use History: None Reported - Past Family History Brother(s) Family Medical History: Cancer Medications and Allergies Home Medications Medication Instructions Recorded Confirmed Type Atorvastatin [Lipitor] 40 mg PO HS 07/07/24 12/03/24 History Folic Acid/Vit B Complex and C 0.8 mg PO HS 07/07/24 12/03/24 History [Tea-Jn Tablet] Nitroglycerin 0.4 mg SL Q5M PRN 07/09/24 12/03/24 History Isosorbide Mononitrate ER [Imdur] 30 mg PO DAILY 11/03/24 12/03/24 History carvediloL [Coreg] 6.25 mg PO BID 11/03/24 12/03/24 History Aspirin 81 mg PO HS 12/03/24 12/03/24 History Allergies Allergy/AdvReac Type Severity Reaction Status Date / Time adhesive tape Allergy Rash/Hives Verified 12/03/24 20:16 Physical Exam Vitals: Vital Signs Temp Pulse Resp BP BP Pulse Ox 12/04/24 09:29 70 20 166/84 95 12/04/24 06:33 97.8 F 18 178/106 96 12/04/24 02:00 97.8 F 18 159/93 95 12/03/24 23:30 79 17 184/102 98 12/03/24 21:46 82 18 182/112 97 12/03/24 18:30 97.6 F 80 19 193/115 95 12/03/24 14:25 97.9 F 93 17 204/117 98 Intake and Output 12/03/24 12/04/24 12/04/24 22:59 06:59 14:59 Other: # Voids 2 1 Weight 79.832 kg Patient is awake, comfortable, no acute distress Alert oriented x 3 Mild tenderness at the site of the catheter although no discharge noted from the site and no redness noted. Examination of the heart S1 and S2 Examination of the lungs bilateral breath sounds are heard Abdomen is soft nontender Examination of lower extremities shows no significant edema [employer] exam grossly intact Results - Lab Results Most recent lab results Calcium 13.1 mg/dL (8.4-10.2) H* 12/04/24 06:46 Phosphorus 5.5 mg/dL (2.5-4.5) H 12/04/24 06:46 Magnesium 4.5 mg/dL (1.6-2.3) H 12/04/24 06:46 12/04/24 06:46 12/04/24 06:46 Assessment and Plan Assessment: 1. End-stage renal disease on hemodialysis on Friday schedule at the [place] dialysis unit 2. Malfunctioning/painful right IJ tunneled catheter 3. Hyperkalemia associated with missing hemodialysis treatments 4. Hypercalcemia. Patient denies being on calcium supplements recently. She is not aware of taking calcitriol at the unit. PTH is ordered. Patient will be dialyzed on a low calcium bath 5. Hypertension with CKD stage V Plan: Try hemodialysis today Low calcium bath with dialysis Vascular surgery consult Continue home dose of Coreg Check phosphorus levels Thank you for the consultation. We will continue to follow the patient with you during her hospitalization.
--- NOTE | 2024-12-04 13:03 | P.PN ---
Subjective Progress Note Date: 12/04/24 Patient is a 74 year old female with past medical history of diabetes mellitus, hyperlipidemia, hypertension, kidney stones, ESRD on dialysis, presented to the ED with dialysis catheter site discomfort. Patient is on dialysis schedule Friday. She presented with the concerns for a dialysis catheter issue. She originally had a left forearm AV fistula and expresses had a fistulogram last month with vascular surgery however unable to be successfully used. She does not have a bruit present on her AV fistula. Now she has a tunneled right IJ catheter inserted. She states that the last catheter was placed a month ago with Dr. Lockwood. She reports having discomfort at the site of the catheter since the surgery. She reports pain as well as bleeding from the site since the catheter was placed in. She also feels like there is a kink in the catheter. Additionally she reports having missed her dialysis session yesterday because she was not feeling well. She reports having generalized weakness and abdominal pain. She was instructed by her vascular surgeon's office to report to the emergency department for further evaluation of malfunctioning dialysis catheter. Patient was admitted to this hospital on 11/03/2024 for ESRD with thrombosed AV graft and underwent a right internal jugular vein tunneled hemodialysis catheter placement on 11/05/2024 and was discharged. She has been on dialysis for 1.5 years now and follows Friday, and Friday schedule. Her dry weight is 176 and usual ultrafiltration is 2L. She also reports of a history of staghorn calculus in the left kidney. Additionally, patient complains of back pain, but mentions it is more chronic in nature. Denies fever, chills, shortness of breath, cough, chest pain, palpitations, abdominal pain, nausea, vomiting, hematuria, dysuria, hematochezia, melena, headache, slurred speech, numbness, tingling, dizziness, lightheadedness, blurred vision, double vision. ED documentation reviewed. 12/04 - She is seen and examined at bedside this morning, remaining in the ED. she had no acute events overnight, and has no acute complaints this morning. She is continues to state that she is not feeling well, however has remained afebrile, and has had no discharge from the catheter itself. She has no associated shortness of breath. REVIEW OF SYSTEMS: Pertinent positives and negatives noted in HPI. Physical Exam: General: mild distress, appears at stated age Derm: warm, dry, intact Head: atraumatic, normocephalic, symmetric Eyes: EOMI, anicteric sclera Mouth: no lip lesion, mucus membranes moist Cardiovascular: S1 S2 reg, no murmur, rubs, or gallops Lungs: CTA bilateral, no rales, no accessory muscle use Abdominal: soft, non-tender to palpataion, no appreciable organomegaly Extremities: clotted AV graft on left upper extremity, no gross muscle atrophy, no edema, no contractures Neuro: Alert, Oriented, strength 4/5 in all four extremities Psych: well appearing, appropriate affect Data Received Today: Labs: WBC 7.9, hemoglobin 11.4, medic at 35.8, platelet 336; sodium 136, potassium 5.6, bicarb 29, BUN 48, creatinine 9.07, calcium 13.1, phosphorus 5.5, magnesium 4.5, total bilirubin 0.7, AST 20, ALT 16, alkaline phosphatase 78 Imagining: No new imaging today Assessment and plan Patient is a 74 year old female with past medical history of diabetes mellitus, hyperlipidemia, hypertension, kidney stones, ESRD on dialysis, presented to the ED with dialysis catheter site discomfort. #ESRD on hemodialysis, TTS schedule #Hemodialysis catheter malfunction #Hyperkalemia #Hyperphosphatemia #Hypomagnesemia -Potassium 5.6, BUN 48, creatinine 9.07, calcium 13.1, phosphorus 5.5, magnesium 4.5 -Chest x-ray shows no acute pulmonary process, catheter placement on the right with the tip to the distal superior vena cava region, no pneumothorax evident -Hemodialysis schedule TTS -Plan for hemodialysis today, as per nephrology -Vascular following -Nephrology following -Monitor electrolyte levels #Hypercalcemia #ESRD on dialysis #Back pain -Ca 14.7 on admission -Vit D 25-hydroxy 127.0 on 11/29/24 -Vitamin D 1,25-dihydroxy 55.6 on 11/03/24 -PTH 16.7 on 11/29/24 -Obtain PTHrp, SPEP, UPEP, Beta 2 microglobulin, kappa and lambda light chain to rule out mutliple myeloma -Extensive workup has already been completed recently with her technical sales engineer Dr. Chu #First-degree AV block -EKG independently interpreted as sinus rhythm, first-degree AV block, MS interval 219 ms, rate 70 bpm, QTc 382 ms -Patient stable and asymptomatic Hypertension - Consider increase carvedilol dose Chronic: #Hyperlipidemia #History of angina #Hypertension #Diabetes mellitus -Continue aspirin 80 mg p.o. at bedtime, atorvastatin 40 mg p.o. at bedtime, carvedilol 6.25 mg p.o. twice daily, Imdur 30 mg p.o. daily,insulin sliding scale DVT ppx: Heparin 5000 units SQ every 12 hours GI PPx: Pantoprazole 40 mg daily Code status: Full code F: None E: Replete as needed N: Renal diet A: Ambulatory Anticipated discharge place: Pending clinical course Anticipated discharge time: Pending clinical course Dictation was produced using [employer] dictation software. please excuse any grammatical, word or spelling errors. Georgi Royal MD PGY-1 IM I have seen and evaluated the patient today. Discussed with the resident and agree with the residents finding and plan as documented in the resident's note. Changes highlighted in blue font. Objective - Vital Signs Vital signs: Vital Signs Temp 97.8 F 12/04/24 06:33 Pulse 79 12/03/24 23:30 Resp 18 12/04/24 06:33 BP 178/106 12/04/24 06:33 Pulse Ox 96 12/04/24 06:33 FiO2 Intake & Output 12/03/24 12/04/24 12/04/24 18:59 06:59 18:59 Weight 79.832 kg 79.832 kg Other: # Voids 1 - Labs CBC & Chem 7: 12/04/24 06:46 12/04/24 06:46 Labs: Abnormal Lab Results - Last 24 Hours (Table) 12/03/24 12/03/24 12/03/24 Range/Units 17:21 17:21 17:21 RBC 3.91 L (4.10-5.20) 10*6/uL MPV 9.3 L (9.5-12.2) fL PT 9.7 L (10.0-12.5) sec APTT 20.9 L (22.0-30.0) sec Potassium 5.4 H (3.5-5.1) mmol/L Carbon Dioxide 33 H (22-30) mmol/L BUN 46 H (7-17) mg/dL Creatinine 8.07 H* (0.52-1.04) mg/dL Glucose 110 H (74-99) mg/dL Calcium 14.6 H* (8.4-10.2) mg/dL Phosphorus 5.0 H (2.5-4.5) mg/dL Magnesium 4.8 H (1.6-2.3) mg/dL
[2024-12-04] MEDS: MIDODRINE 5 MG TAB PO STA (14:30)
[2024-12-04] MEDS: ACETAMINOPHEN TAB 325 MG TAB PO PRN (14:31)
[2024-12-04 15:07] LABS: Beta 2 Microglobulin 26.7 mg/L (0.61-2.37)
[2024-12-04] MEDS ORDERED: FOLIC ACID-VIT B COMPLEX-VIT C 1 CAP PO SCH (21:00)
[2024-12-04] MEDS: ATORVASTATIN 40 MG TAB PO SCH (21:02)
[2024-12-04] MEDS: ASPIRIN 81 MG PO SCH (21:02)
[2024-12-05 05:42] LABS: African American GFR (CKD) 6 (>60 ml/min/1.73 sqM); Anion Gap 5 mmol/L; Blood Urea Nitrogen 34 mg/dL (7-17); Calcium 10.3 mg/dL (8.4-10.2); Carbon Dioxide 32 mmol/L (22-30); Chloride 96 mmol/L (98-107); Glucose 83 mg/dL (74-99); Magnesium 3.1 mg/dL (1.6-2.3); Non-African American GFR(CKD) 5 (>60 ml/min/1.73 sqM); Phosphorus 5.1 mg/dL (2.5-4.5); Potassium 4.6 mmol/L (3.5-5.1); Sodium 133 mmol/L (137-145)
[2024-12-05 06:02] LABS: Basophils # (A) 0.05 10*3/uL (0.00-0.10); Basophils % (A) 0.7 %; Eosinophils # (A) 0.33 10*3/uL (0.04-0.35); Eosinophils % (A) 4.8 %; HCT 30.3 % (37.2-46.3); Lymphocytes # (A) 1.89 10*3/uL (0.90-5.00); Lymphocytes % (A) 27.5 %; MCH 31.6 pg (27.0-32.0); MCHC 32.3 g/dL (32.0-37.0); MCV 97.7 fL (80.0-97.0); Mean Platelet Volume 9.5 fL (9.5-12.2); Monocytes # (A) 0.82 10*3/uL (0.20-1.00); Monocytes % (A) 11.9 %; Neutrophils # (A) 3.75 10*3/uL (1.80-7.70); Neutrophils % (A) 54.7 %; Platelet Count 276 10*3/uL (140-440); RDW 14.2 % (11.5-14.5); WBC 6.87 10*3/uL (4.50-10.00)
[2024-12-05 06:15] LABS: HGB 9.8 g/dL (12.0-15.0)
[2024-12-05 07:49] VITALS: BP 128/65; PULSE 62; RESP 18; TEMP 97.8
--- NOTE | 2024-12-05 10:31 | P.GSCN ---
History of Present Illness Consult date: 12/05/24 History of present illness: Patient is a 74-year-old female with previously placed right IJ tunneled catheter. Reportedly there has been issues with her clearance via this catheter and has had request for outpatient replacement however at dialysis the other day was having issues with the catheter so much so that she came to the hospital. During the attempted run of dialysis yesterday there was significant beeping and inappropriate flow of the machine therefore plans to replace her catheter today. Past Medical History Past Medical History: Chest Pain / Angina, Diabetes Mellitus, Hyperlipidemia, Hypertension, Osteoarthritis (OA), Renal Disease Additional Past Medical History / Comment(s): Diet Controlled Diabetes. Dialysis T[facility]SA. Hx kidney stones. History of Any Multi-Drug Resistant Organisms: None Reported Past Surgical History: Joint Replacement Additional Past Surgical History / Comment(s): Procedure for kidney stone X2, bilateral knee replacement. Past Anesthesia/Blood Transfusion Reactions: No Reported Reaction, Motion Sickness Past Psychological History: No Psychological Hx Reported Smoking Status: Never smoker Past Alcohol Use History: None Reported Past Drug Use History: None Reported - Past Family History Brother(s) Family Medical History: Cancer Medications and Allergies Home Medications Medication Instructions Recorded Confirmed Type Atorvastatin [Lipitor] 40 mg PO HS 07/07/24 12/03/24 History Folic Acid/Vit B Complex and C 0.8 mg PO HS 07/07/24 12/03/24 History [Tea-Jn Tablet] Nitroglycerin 0.4 mg SL Q5M PRN 07/09/24 12/03/24 History Isosorbide Mononitrate ER [Imdur] 30 mg PO DAILY 11/03/24 12/03/24 History carvediloL [Coreg] 6.25 mg PO BID 11/03/24 12/03/24 History Aspirin 81 mg PO HS 12/03/24 12/03/24 History Allergies Allergy/AdvReac Type Severity Reaction Status Date / Time adhesive tape Allergy Rash/Hives Verified 12/03/24 20:16 Surgical - Exam Vital Signs Temp Pulse Resp BP Pulse Ox 97.9 F 93 17 204/117 98 12/03/24 14:25 12/03/24 14:25 12/03/24 14:25 12/03/24 14:25 12/03/24 14:25 General pleasant operative female in no acute distress right IJ dialysis catheter clean and dry Results - Labs 12/05/24 05:13 12/05/24 05:13 Abnormal Lab Results - Last 24 Hours (Table) 12/04/24 12/05/24 12/05/24 Range/Units 06:46 05:13 05:13 RBC 3.10 L (4.10-5.20) 10*6/uL Hgb 9.8 L D (12.0-15.0) g/dL Hct 30.3 L (37.2-46.3) % MCV 97.7 H (80.0-97.0) fL Sodium 133 L (137-145) mmol/L Chloride 96 L (98-107) mmol/L Carbon Dioxide 32 H (22-30) mmol/L BUN 34 H (7-17) mg/dL Creatinine 7.33 H* (0.52-1.04) mg/dL Calcium 10.3 H (8.4-10.2) mg/dL Phosphorus 5.1 H (2.5-4.5) mg/dL Magnesium 3.1 H (1.6-2.3) mg/dL [id number] 26.70 H (0.61-2.37) mg/L Diabetes panel 12/05/24 Range/Units 05:13 Sodium 133 L (137-145) mmol/L Potassium 4.6 (3.5-5.1) mmol/L Chloride 96 L (98-107) mmol/L Carbon Dioxide 32 H (22-30) mmol/L BUN 34 H (7-17) mg/dL Creatinine 7.33 H* (0.52-1.04) mg/dL Glucose 83 (74-99) mg/dL Calcium 10.3 H (8.4-10.2) mg/dL Calcium panel 12/05/24 Range/Units 05:13 Calcium 10.3 H (8.4-10.2) mg/dL Phosphorus 5.1 H (2.5-4.5) mg/dL Pituitary panel 12/05/24 Range/Units 05:13 Sodium 133 L (137-145) mmol/L Potassium 4.6 (3.5-5.1) mmol/L Chloride 96 L (98-107) mmol/L Carbon Dioxide 32 H (22-30) mmol/L BUN 34 H (7-17) mg/dL Creatinine 7.33 H* (0.52-1.04) mg/dL Glucose 83 (74-99) mg/dL Calcium 10.3 H (8.4-10.2) mg/dL Adrenal panel 12/05/24 Range/Units 05:13 Sodium 133 L (137-145) mmol/L Potassium 4.6 (3.5-5.1) mmol/L Chloride 96 L (98-107) mmol/L Carbon Dioxide 32 H (22-30) mmol/L BUN 34 H (7-17) mg/dL Creatinine 7.33 H* (0.52-1.04) mg/dL Glucose 83 (74-99) mg/dL Calcium 10.3 H (8.4-10.2) mg/dL Assessment and Plan Assessment: Malfunctioning right IJ tunneled dialysis catheter End-stage renal disease Plan: Plan for placement of tunneled dialysis catheter. Risks and benefits was discussed. She seems to understand and is willing to proceed
[2024-12-05] MEDS: fentaNYL (PF) 50 MCG/1 ML VIAL IVP ONE (10:55)
[2024-12-05] MEDS: LIDOCAINE 1% INJ 10MG/ML (20 ML MDV) SQ ONE (10:57)
[2024-12-05] MEDS: MIDAZOLAM 2 MG/2 ML VIAL IVP ONE (11:01)
--- NOTE | 2024-12-05 11:18 | P.OP ---
Date of Procedure: 12/05/24 Description of Procedure: DATE OF PROCEDURE: 12/05/2024 PREOPERATIVE DIAGNOSIS: End-stage renal disease, malfunctioning dialysis catheter, poor clearance PROCEDURE: Re placement of a 23 cm tunneled dialysis catheter with fluoroscopic assistance. Moderate conscious sedation times 16 minutes PROCEDURE: The patient was brought to the Thermocouple Tester placed in supine position. The bilateral necks were prepped and draped in usual sterile fashion. A preprocedure timeout was performed, all parties were in agreement. Lidocaine was instilled into the area of the apex of the catheter. An incision was made and cut down to the catheter. The catheter was grasped and transected. The distal portion externally was removed and discarded. The port into the chest was cannulated with a wire. The catheter was removed and discarded and a large dilator was placed. Attention was then turned towards the chest wall A small palmira and the skin was made and the previously flushed catheter was tunneled through the anticipated location. Then under fluoroscopic guidance, Seldinger technique was used and the final tear-away sheath was left in place. The inner cannula and wire were removed. The catheter was placed in the tear-away sheath was removed in standard fashion. The catheter showed good positioning was final resting place in the cavoatrial junction. The catheter aspirated and flushed freely. The incision at the neck was reapproximated with interrupted sutures of 4-0 Vicryl. The catheter was sutured in place with 3-0 nylon. Dressings were placed. The patient was allowed to awaken from anesthesia and transferred to recovery in stable condition having tolerated the procedure well.
--- NOTE | 2024-12-05 11:48 | P.DS ---
Providers Date of admission: 12/03/24 21:09 Expected date of discharge: 12/05/24 Attending physician: Valeriy Nava MD Consults: 12/03/24 21:09 Consult Physician Routine Consulting Provider: Heidy Neal Consult Reason/Comments: dialysis cath malfunction Do you want consulting provider notified?: Yes, Notify in am Consult Physician Routine Consulting Provider: Taisha Padilla Consult Reason/Comments: ESRD patient, electrolyte management Do you want consulting provider notified?: Yes, Notify in am Primary care physician: [facility] Course: Discharge Diagnosis: Malfunctioning dialysis catheter Normocytic anemia ESRD on hemodialysis Hyperkalemia Hyponatremia, hypervolemic Hypercalcemia, hyperphosphatemia Hospital Course: 74 year old female with past medical history of diabetes mellitus, hyperlipidemia, hypertension, kidney stones, ESRD on dialysis, presented to the ED with dialysis catheter site discomfort. Seen by vascular surgery as well as nephrology. She did have 1 dialysis session on Friday, next dose on Friday. She had her dialysis catheter exchange. Asymptomatic at the time of discharge. Patient seen and examined at bedside. Vital signs reviewed and stable. General: Nontoxic, no distress, appears at stated age Derm: Warm, dry, dialysis catheter site clean, dry, intact Head: Atraumatic, normocephalic, symmetric Eyes: EOMI, no lid lag, anicteric sclera Mouth: No lip lesion, mucus membranes moist Cardiovascular: S1S2 reg, no murmur Lungs: CTA bilateral, no rhonchi, no rales, no accessory muscle use Abdominal: Soft, nontender to palpation, no guarding, no appreciable organomegaly Ext: No gross muscle atrophy, no edema, no contractures Neuro: CN II-XI grossly intact, no focal neuro deficits Psych: Alert, oriented, appropriate affect A total of 36 minutes of time were spent preparing this complex discharge summary. Patient was discharged on 12/05/2024 at 1142. Patient Condition at Discharge: Stable Plan - Discharge Summary New Discharge Prescriptions: Continue Folic Acid/Vit B Complex and C [Tea-Jn Tablet] 0.8 mg PO HS Atorvastatin [Lipitor] 40 mg PO HS Nitroglycerin 0.4 mg SL Q5M PRN PRN Reason: Chest Pain carvediloL [Coreg] 6.25 mg PO BID Aspirin 81 mg PO HS Isosorbide Mononitrate ER [Imdur] 30 mg PO DAILY Discharge Medication List Atorvastatin [Lipitor] 40 mg PO HS 07/07/24 [History] Folic Acid/Vit B Complex and C [Tea-Jn Tablet] 0.8 mg PO HS 07/07/24 [Histo ry] Nitroglycerin 0.4 mg SL Q5M PRN 07/09/24 [History] Isosorbide Mononitrate ER [Imdur] 30 mg PO DAILY 11/03/24 [History] carvediloL [Coreg] 6.25 mg PO BID 11/03/24 [History] Aspirin 81 mg PO HS 12/03/24 [History] Follow up Appointment(s)/Referral(s): Stephanie Gay MD [Primary Care Provider] - 1-2 days Patient Instructions/Handouts: End Stage Kidney Disease (DC) Discharge Disposition: HOME SELF-CARE
--- NOTE | 2024-12-05 11:54 | P.PN ---
Subjective Patient is seen for follow-up for end-stage renal disease. Currently going to the OR for new catheter placement. Patient did have dialysis yesterday but complained of significant pain with the catheter. Not much UF with treatment yesterday as blood pressure was low. Objective - Vital Signs Vital signs: Vital Signs Temp 97.8 F 12/05/24 07:05 Pulse 62 12/05/24 07:05 Resp 18 12/05/24 07:05 BP 128/65 12/05/24 07:05 Pulse Ox 97 12/05/24 07:05 FiO2 Intake & Output 12/04/24 12/05/24 12/05/24 18:59 06:59 18:59 Intake Total 800 Output Total 1306 Balance -506 Intake: Hemodialysis 800 Output: Hemodialysis 1053 Hemodialysis Net Amount 253 Other: # Voids 1 - Exam Patient is awake, comfortable, no acute distress Alert oriented x 3 Mild tenderness at the site of the catheter although no discharge noted from the site and no redness noted. Examination of the heart S1 and S2 Examination of the lungs bilateral breath sounds are heard Abdomen is soft nontender Examination of lower extremities shows no significant edema CHALK CUTTER exam grossly intact - Labs CBC & Chem 7: 12/05/24 05:13 12/05/24 05:13 Labs: Abnormal Lab Results - Last 24 Hours (Table) 12/04/24 12/05/24 12/05/24 Range/Units 06:46 05:13 05:13 RBC 3.10 L (4.10-5.20) 10*6/uL Hgb 9.8 L D (12.0-15.0) g/dL Hct 30.3 L (37.2-46.3) % MCV 97.7 H (80.0-97.0) fL Sodium 133 L (137-145) mmol/L Chloride 96 L (98-107) mmol/L Carbon Dioxide 32 H (22-30) mmol/L BUN 34 H (7-17) mg/dL Creatinine 7.33 H* (0.52-1.04) mg/dL Calcium 10.3 H (8.4-10.2) mg/dL Phosphorus 5.1 H (2.5-4.5) mg/dL Magnesium 3.1 H (1.6-2.3) mg/dL [id number] 26.70 H (0.61-2.37) mg/L Assessment and Plan Assessment: 1. End-stage renal disease on hemodialysis on Friday schedule at the [place] dialysis unit under care of Dr. Chu 2. Malfunctioning/painful right IJ tunneled catheter, mostly causing pain 3. Hyperkalemia associated with missing hemodialysis treatments, improved with hemodialysis 4. Hypercalcemia. Patient denies being on calcium supplements recently. She is not aware of taking calcitriol at the unit. Patient was dialyzed on a low calcium bath. Calcium was 10.3 today. PTH is appropriately low at 18.3 5. Hypertension with CKD stage V Plan: Patient could be discharged from nephrology standpoint after dialysis catheter placement. She will follow-up as outpatient at her dialysis unit in [place].
[2024-12-06 09:14] LABS: Protein, Total 6.7 g/dL (6.2-8.2)
[2024-12-06 10:59] LABS: Free Kappa Lt Chain Qnt, Serum 10.9 mg/dL (0.33-1.94); Free Lambda Lt Chain Qnt, Seru 6.27 mg/dL (0.57-2.63)
[2024-12-07 15:05] LABS: Albumin 3.83 g/dL (3.80-4.90); Gamma Globulin 0.81 g/dL (0.70-1.50)
--- NOTE | 2024-12-08 08:09 | IR ---
EXAMINATION TYPE: IR cvc insert central tunneled Intraoperative/procedural fluoroscopic services were provided. CLINICAL INDICATION:Female, 74 years old with history of DIALYSIS CATHETER EXCHANGE; , [facility] FINDINGS: Multiple fluoroscopic images for dual lumen right IJ approach dialysis catheter with distal tip in th e right atrium. Total fluoroscopy time is 0.2 min. DAP: 0.353 Gycm2 Please see the operative/procedural note for further details. [facility], , 12/08/2024 8:07 AM
== END 2024-12-05 14:18 | disposition home or self-care (01) ==
LOC: EC 14:22 → 6NMEDSUR 21:09 → 3SCARD 21:36 → 6NMEDSUR 12-04 19:26 → 4SSUR 12-04 19:43
PROVIDERS: ADMIT Internal Medicine; ATTEND Internal Medicine
DX: T82.41XA Breakdown (mechanical) of vascular dialysis catheter, initial encounter (principal); T82.868A Thrombosis due to vascular prosthetic devices, implants and grafts, initial encounter; Y71.2 Prosthetic and other implants, materials and accessory cardiovascular devices associated with adverse incidents; Y83.2 Surgical operation with anastomosis, bypass or graft as the cause of abnormal reaction of the patient, or of later complication, without mention of misadventure at the time of the procedure; D64.9 Anemia, unspecified; E11.22 Type 2 diabetes mellitus with diabetic chronic kidney disease; E78.5 Hyperlipidemia, unspecified; E83.39 Other disorders of phosphorus metabolism; E83.42 Hypomagnesemia; E83.52 Hypercalcemia; E87.1 Hypo-osmolality and hyponatremia; E87.5 Hyperkalemia; E87.70 Fluid overload, unspecified; I12.0 Hypertensive chronic kidney disease with stage 5 chronic kidney disease or end stage renal disease; I44.0 Atrioventricular block, first degree; N18.6 End stage renal disease; M54.9 Dorsalgia, unspecified; Z79.82 Long term (current) use of aspirin; Z79.899 Other long term (current) drug therapy; Z87.442 Personal history of urinary calculi; Z99.2 Dependence on renal dialysis
CPT/HCPCS: 96372; 99285; 36415; 90935; 93005; 36581; 83880; 80053 ×2; 80048; 83735 ×3; 84100 ×3; 85025 ×3; 85610; 85730; 84165; 82232; 83970; 83883 ×2; 71046; G0378 ×3; C1769; C1750; J2250; J1644; J2003; J3010